=== PATIENT | female | born 1980 | race Caucasian/White ===

== ENCOUNTER 2016-08-18 02:15 | Inpatient (IN) | payer MEDICAID ==
[2016-08-18 02:15] VITALS: BMI 24.2
[2016-08-18] MEDS ORDERED: Amoxicillin-Clav 875-125 mg Tab PO STA (03:37)
[2016-08-18 03:38] LABS: BASO % 0.3 % (0.0-2.0); EOS # 0.2 K/uL (0.0-0.7); EOS % 2.3 % (0.0-4.0); HEMOGLOBIN 9.5 g/dL (11.0-16.0); LYMPH # 3.2 K/uL (1.0-4.3); LYMPH % 36.4 % (20.0-40.0); MEAN CELL VOLUME 73.7 fL (81.0-99.0); MEAN CORPUSCULAR HGB CONC 31.2 g/dL (33.0-37.0); MEAN PLATELET VOLUME 7.3 fL (7.2-11.7); MONO # 0.8 K/uL (0.0-0.8); MONO % 8.9 % (0.0-10.0); NEUT # 4.6 K/uL (1.8-7.0); NEUT % 52.1 % (50.0-75.0); NRBC % 0.1 % (0.0-2.0); RBC 4.12 Mil/uL (3.80-5.20); RED CELL DISTRIBUTION WIDTH 23.8 % (11.5-14.5); WHITE BLOOD COUNT 8.8 K/uL (4.8-10.8)
[2016-08-18 03:42] LABS: HCG,QUALITATIVE URINE NEGATIVE (NEGATIVE)
[2016-08-18 03:49] LABS: ALBUMIN 3.7 g/dL (3.5-5.0); BARBITURATES, UR NEGATIVE (NEGATIVE)
--- NOTE | 2016-08-18 03:49 | C.PDOC ---
History Of Present Illness <Delon Ann - Last Filed: 08/18/16 06:21> <Maryanne Paniagua - Last Filed: 08/18/16 08:45> 36 y/o female presents to ED requesting heroin detox. Patient also reports drinking 2 pints of vodka. States last use of heroin and vodka was today. Patient also states that part of her needle broke off into her left forearm while injecting heroin. Otherwise, denies any other physical complaints at this time. (Delon Ann) History Per: Patient History/Exam Limitations: no limitations Onset/Duration Of Symptoms: Gradual Current Symptoms Are (Timing): Still Present Severity: None Pain Scale Rating Of: 0 Associated Symptoms: denies: Suicidal Thoughts, Suicidal Plan Involuntary Hold By: None Recent travel outside of the [place]: No Additional History Per: Patient <Jane Annmoon Wilson - Last Filed: 08/18/16 06:21> <SivaMaryanne - Last Filed: 08/18/16 08:45> Time Seen by Provider: 08/18/16 03:10 Chief Complaint (Nursing): Psychiatric Evaluation Past Medical History Reviewed: Historical Data, Nursing Documentation, Vital Signs - Medical History PMH: Asthma Denies: Diabetes, Hepatitis, HIV, HTN, Chronic Kidney Disease, Seizures, Sexually Transmitted Disease Family History: States: Unknown Family Hx - Social History Hx Alcohol Use: Yes Hx Substance Use: Yes - Immunization History Hx Tetanus Toxoid Vaccination: No Hx Influenza Vaccination: No Hx Pneumococcal Vaccination: No <NagageetaCeliaDelon P - Last Filed: 08/18/16 06:21> Review Of Systems Except As Marked, All Systems Reviewed And Found Negative. Constitutional: Negative for: Fever, Chills Cardiovascular: Negative for: Chest Pain, Palpitations Respiratory: Negative for: Shortness of Breath Gastrointestinal: Negative for: Nausea, Vomiting, Abdominal Pain Neurological: Negative for: Headache, Dizziness Psych: Negative for: Suicidal ideation <MarissaDelon P - Last Filed: 08/18/16 06:21> Physical Exam - Physical Exam Appears: Non-toxic, No Acute Distress Skin: Warm, Dry, Other (track faust to left forearm. No visible or palpable foreign body) Head: Atraumatic, Normacephalic Eye(s): bilateral: Normal Inspection Neck: Normal ROM, Supple Cardiovascular: Rhythm Regular, No Murmur Respiratory: Normal Breath Sounds, No Rales, No Rhonchi, No Wheezing Gastrointestinal/Abdominal: Soft, No Tenderness Extremity: Normal ROM, No Tenderness, No Deformity Neurological/Psych: Oriented x3, Normal Speech, Normal Cognition <Delon Ann - Last Filed: 08/18/16 06:21> ED Course And Treatment - Laboratory Results Result Diagrams: 08/18/16 03:34 08/18/16 03:34 ECG: Interpreted By Me, Viewed By Me ECG Rhythm: Sinus Tachycardia ECG Interpretation: No Acute Changes Rate From EC (bpm) O2 Sat by Pulse Oximetry: 97 Pulse Ox Interpretation: Normal Progress Note: Blood work, urinalysis, EKG ordered and reviewed. Patient was given Augmentin. <Delon Ann - Last Filed: 08/18/16 06:21> - Laboratory Results Result Diagrams: 08/18/16 03:34 08/18/16 03:34 <Maryanne Paniagau - Last Filed: 08/18/16 08:45> Medical Decision Making <Delon Ann - Last Filed: 08/18/16 06:21> <Maryanne Paniagua - Last Filed: 08/18/16 08:45> Medical Decision Making: Rec pt to follow up with surgery for ? fb in forearm. Rec continue ppx abx augmentin for 5 days. (Delon Ann) Disposition <Delon Ann - Last Filed: 08/18/16 06:21> - Disposition Disposition Time: 08:45 - POA Present On Arrival: None <Maryanne Paniagua - Last Filed: 08/18/16 08:45> - Disposition Referrals: Eduardo French MD [Staff Provider] - Disposition: HOSPITALIZED Condition: STABLE - Clinical Impression Clinical Impression: Opiate dependence, Alcohol dependence - Scribe Statement The provider has reviewed the documentation as recorded by the Scribe <Delon Ann - Last Filed: 08/18/16 06:21> <Maryanne Paniagua - Last Filed: 08/18/16 08:45> - Scribe Statement Sharonda Olson All medical record entries made by the Scribe were at my direction and personally dictated by me. I have reviewed the chart and agree that the record accurately reflects my personal performance of the history, physical exam, medical decision making, and the department course for this patient. I have also personally directed, reviewed, and agree with the discharge instructions and disposition. (Delon Ann) Decision To Admit <Delon Ann - Last Filed: 08/18/16 06:21> - Pt Status Changed To: Hospital Disposition Of: Inpatient - Admit Certification Admit to Inpatient:: After my assessment, the patient will require hospitalization for at least two midnights. This is because of the severity of symptoms shown, intensity of services needed, and/or the medical risk in this patient being treated as an outpatient. - InPatient: Physician Admission Certification: I certify that this patient requires 2 or more midnights of care for the following reason:: SEE NOTE - . Bed Request Type: Detox Admitting Physician: Meme Chao <Maryanne Paniagua - Last Filed: 08/18/16 08:45> - . Patient Diagnosis: Opiate dependence, Alcohol dependence
[2016-08-18 03:50] LABS: BENZODIAZEPINES, UR POSITIVE (NEGATIVE)
[2016-08-18 03:52] LABS: GFR AFRICAN-AMERICAN > 60; GFR NON-AFRICAN AMERICAN > 60
[2016-08-18 03:53] LABS: ALT/SGPT 117 U/L (9-52); AST/SGOT 227 U/L (14-36); BLOOD UREA NITROGEN 9 mg/dL (7-17); CALCIUM 7.8 mg/dl (8.6-10.4); OPIATES, UR POSITIVE (NEGATIVE)
[2016-08-18 03:54] LABS: PHENCYCLIDINE, UR NEGATIVE (NEGATIVE)
[2016-08-18 03:55] LABS: SQUAMOUS EPITHIAL 6 /hpf (0-5); URINE BACTERIA RARE (<OCC); URINE BILIRUBIN NEGATIVE (NEGATIVE); URINE BLOOD NEGATIVE (NEGATIVE); URINE CLARITY Clear (Clear); URINE COLOR Yellow (YELLOW); URINE GLUCOSE (UA) NORMAL (Normal); URINE LEUKOCYTE ESTERASE NEG Leu/uL (Negative); URINE NITRATE NEGATIVE (NEGATIVE); URINE PROTEIN NEGATIVE (NEGATIVE); URINE UROBILINOGEN NORMAL mg/dL (0.2-1.0)
[2016-08-18] MEDS ORDERED: Potassium Chloride 20 mEq ER Tab PO STA (06:19)
[2016-08-18] MEDS ORDERED: Potassium Chloride 20 mEq ER Tab PO SCH (10:00)
--- NOTE | 2016-08-18 10:39 | PCM.BM ---
<Jennifer Morales - Last Filed: 08/18/16 10:39> Treatment Plan Problems - Problems identified on initial assessmt denial Date Initiated: 08/18/16 Time Initiated: 10:40 Assessment reference: NA Status: Active Defensive Coping Date Initiated: 08/18/16 Time Initiated: 10:40 Assessment reference: NA Status: Active Knowledge Deficit Date Initiated: 08/18/16 Time Initiated: 10:42 Assessment reference: NA Status: Active Treatment assets and liabiliti Patient Assests: adapts well, cooperative, ADL independent, strong sri Patient Liabilities: substance abuse - Milieu Protocol Maintain good personal hygiene: daily Encourage regular showers, daily Remind patient to perform daily oral care, daily Assist patient to perform ADL's Conduct patient checks and document Observation sheet: Q15 minutes Maintain personal safety: every shift Educate patient to report safety concerns to staff, every shift Monitor environment for contraband/sharps Medication safety: Monitor for expected outcome, potential side effects: every shift, Assess barriers to learning: every shift, Assess readiness for medication education: every shift <Meme Chao - Last Filed: 08/24/16 23:34> Treatment Plan Problems - Problems identified on initial assessmt denial Date Initiated: 08/18/16 Time Initiated: 10:40 Assessment reference: NA Status: Active Defensive Coping Date Initiated: 08/18/16 Time Initiated: 10:40 Assessment reference: NA Status: Active Knowledge Deficit Date Initiated: 08/18/16 Time Initiated: 10:42 Assessment reference: NA Status: Active deniel Date Initiated: 08/18/16 Assessment reference: NA Status: Active - Diagnosis (1) Alcohol dependence Status: Acute Interventions: 08/22/16 20:33 * Assess 7x/week regarding severity of withdrawal * Educate regarding risks, benefits, side effects and alternatives of medications * Use Motivational Interviewing for abstinence * Use CBT for relapse prevention * Medication management for withdrawal symptoms * Encourage medication assisted treatment * (2) Opiate dependence Status: Acute Interventions: 08/22/16 20:34 * Assess 7x/week regarding severity of withdrawal * Educate regarding risks, benefits, side effects and alternatives of medications * Use Motivational Interviewing for abstinence * Use CBT for relapse prevention * Medication management for withdrawal symptoms * Encourage medication assisted treatment
[2016-08-18] MEDS ORDERED: Aluminum Hydroxide/Magnesium Hydroxide Susp (30 mL) PO PRN (11:47)
[2016-08-18] MEDS ORDERED: Multiple Vitamins Tab PO SCH (12:00)
[2016-08-18] MEDS: Multiple Vitamins Tab PO SCH (12:30)
--- NOTE | 2016-08-18 12:48 | RAD ---
PROCEDURE: Radiographs of the Left Forearm HISTORY: R/O FB COMPARISON: None available. TECHNIQUE: Frontal and lateral views obtained. FINDINGS: BONES: No fracture or destructive lesion. JOINT SPACES: Unremarkable. OTHER FINDINGS: No retained radiodense foreign body or emphysematous soft tissue changes are identified. IMPRESSION: Unremarkable radiographs of the left forearm. No retained radius foreign body is identified or emphysema soft tissue change.
--- NOTE | 2016-08-18 13:33 | PCM.PSYCH ---
Initial Psychiatric Evaluation - Initial Psychiatric Evaluation Type of Admission: Voluntary Legal Status: Capacity Chief Complaint (in patient's own words): "I'm too tired" History of Present Illness and Precipitating Events: The patient is seen, chart reviewed and case discussed. This is a 36-year-old female, with 2 children but they are not living with her as she lost custody. She lives with her mother and . She is unemployed. She is a poor historian due to extreme sedation. The patient reports using heroin up to 15 bags intravenously for "many years." She also uses alcohol up to 2 pints a day and some benzodiazepines. Amount unknown. She denies current daily cocaine use but uses on and off, and smokes 1 pack per day cigarettes. She claimed she had a broken needle in her arm but XR looks negative and report is pending. She has been to detox to 3 times and rehabilitation twice. She was in methadone maintenance program in [place] but quit. She also used Suboxone or recently and in the past from the street. Past psych history: Anxiety. No admissions and no suicide attempts Family psych history: Denies Medical history: Denies Current Medications: Active Medications Generic Name Dose Route Start Last Admin Trade Name Freq PRN Reason Stop Dose Admin Al Hydrox/Mg Hydrox/Simethicone 30 ml 08/18/16 11:47 Maalox 30 Ml PO TID PRN Indigestion / Heartburn Clonidine HCl 0.1 mg 08/18/16 12:15 Catapres PO Q4H PRN FOR OPIATE WITHDRAWAL Gabapentin 300 mg 08/18/16 18:00 Neurontin PO BID IGLESIA Loperamide HCl 2 mg 08/18/16 11:47 Imodium PO Q8 PRN Diarrhea Lorazepam 1 mg 08/18/16 11:54 Ativan PO Q4H PRN Symptoms of alcohol withdrawl Lorazepam 2 mg 08/18/16 12:00 08/18/16 12:18 Ativan PO 08/22/16 11:59 2 mg Q6H IGLESIA Administration Taper Multivitamins 1 tab 08/18/16 12:00 08/18/16 12:30 Hexavitamin PO Not Given DAILY IGLESIA Ondansetron HCl 4 mg 08/18/16 11:47 Zofran Tab PO Q8 PRN Nausea/Vomiting Thiamine HCl 100 mg 08/18/16 12:00 08/18/16 12:30 Vitamin B1 Tab PO Not Given DAILY IGLESIA Trazodone HCl 50 mg 08/18/16 11:48 Desyrel PO HS PRN Insomnia Past Psychiatric History - Past Psychiatric History Previous Treatment History: None Pertinent Medical Hx (Current Medical&Sleep Prob, Allergies): Allergies Allergy/AdvReac Type Severity Reaction Status Date / Time No Known Allergies Allergy Verified 08/18/16 02:37 RX: No Known Home Med 03/30/15 Review of Systems - Psychiatric Psychiatric: Abnormal Sleep Pattern, Anxiety, Behavioral Changes, Change in Appetite, Irritability. absent: Hallucinations, Homicidal Ideation, Suicidal Ideation Mental Status Examination - Personal Presentation Personal Presentation: Looks older than stated age - Affect Affect: Constricted - Motor Activity Motor Activity: Calm - Reliability in Providing Information Reliability in Providing Information: Fair - Speech Speech: Organized - Mood Mood: Anxious - Formal Thought Process Formal Thought Process: No Impairment - Cognitive Functions Orientation: Person, Place, Situation, Time Sensorium: Drowsy Attention/Concentration: Easily distracted Estimate of Intelligence: Average Judgement: Intact, as evidence by: Insight regarding need for hospitalization Memory: Recent intact, as evidence by: Ability to recall events of the day, Remote impaired as evidenced by: Inability to recall sig life events - Risk Risk: Seizure, Withdrawal, Diminished functioning - Strength & Assets Inventory Strength & Assets Inventory: Family support, Cooperative - Limitations Limitations: Other DSM 5 DX - DSM 5 DSM 5 Diagnosis: Opioid withdrawal Alcohol withdrawal 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 Alcohol use d/o - severe 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 NAOMI Cocaine use d/o - severe Tobacco use d/o - severe - Recommended/Plan of Treatment Treatment Recommendations and Plan of Treatment: Opioids: Subutex detox As needed meds and vitamins Attend groups and activities [place] for abstinence and CBT for relapse prevention Support and psychoeducation Consider and encourage MAT Refer to after care Alcohol and benzos: Ativan detox due to high LFTs Gabapentin for augmentation As needed meds and vitamins Attend groups and activities [place] for abstinence and CBT for relapse prevention Support and psychoeducation Consider and encourage MAT Refer to after care Cocaine:[place] and CBT Gabapentin Tobacco: Nicotine patch [place] for abstinence NAOMI: Lexapro Gabapentin Support and CBT 33 min Projected ELOS: 5 days Prognosis: Good with treatment Discharge Plan and Discharge Criteria: No wdw sxs Refer to rehab - Smoking Cessation Smoking Cessation Initiated: Yes
--- NOTE | 2016-08-19 08:58 | PCM.PYCHPN ---
Psychiatric Progress Note - Psychiatric Progress Note Patient seen today, length of contact: 15 min Patient Chief Complaint: I am feeling little better.' Problems Identified/Issues Discussed: Patient seen and evaluated, chart reviewed and discussed with the nurse. The patient reports irritability and anxiety. She reports withdrawal symptoms including abdominal cramps, back pain, anxiety, and sweating. She is tolerating the detox protocol medications and denies any feelings of hopelessness or helplessness. She denies any suicidal ideation or homicidal ideation. She denies any side effects of the medications. Supportive therapy and psychoeducation were given. Medication Change: Yes (Ativan / methadone taper) Medical Record Reviewed: Yes Mental Status Examination - Cognitive Function Orientation: Person, Place, Situation, Time Memory: Intact Attention: WNL Concentration: Poor Association: WNL Fund of Knowledge: Poor - Mood Mood: Anxious - Affect Affect: Constricted - Speech Speech: Soft - Formal Thought Process Formal Thought Process: No Impairment - Suicidal Ideation Suicidal Ideation: No - Homicidal Ideation Homicidal Ideation: No Goal/Treatment Plan - Goal/Treatment Plan Need for Continued Stay: Discharge may exacerbated symptoms, Severe functional impairment Progress Toward Problem(s) and Goals/Treatment Plan: Opioid withdrawal Alcohol withdrawal 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 Alcohol use d/o - severe 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 NAOMI Cocaine use d/o - severe Tobacco use d/o - severe Opioids: Methadone detox As needed meds and vitamins Attend groups and activities [place] for abstinence and CBT for relapse prevention Support and psychoeducation Consider and encourage MAT Refer to after care Alcohol and benzos: Ativan detox due to high LFTs Gabapentin for augmentation As needed meds and vitamins Attend groups and activities [place] for abstinence and CBT for relapse prevention Support and psychoeducation Consider and encourage MAT Refer to after care Cocaine: [place] and CBT Gabapentin Tobacco: Nicotine patch [place] for abstinence NAOMI: Lexapro Gabapentin Support and CBT - Smoking Cessation Smoking Cessation Initiated: No
[2016-08-19] MEDS: Multiple Vitamins Tab PO SCH (09:18)
[2016-08-20] MEDS: Multiple Vitamins Tab PO SCH (09:23)
--- NOTE | 2016-08-20 10:09 | PCM.PYCHPN ---
Psychiatric Progress Note - Psychiatric Progress Note Patient seen today, length of contact: 16 min Patient Chief Complaint: I am feeling little better.' Problems Identified/Issues Discussed: Patient seen and evaluated, chart reviewed and discussed with the nurse. The patient reports a bit improvement in irritability and anxiety. She is tolerating the detox protocol medications and reports withdrawal symptoms including abdominal cramps, anxiety, and sweating. She denies any suicidal ideation or homicidal ideation. She denies any side effects of the medications. Supportive therapy and psychoeducation were given. Medication Change: Yes (Ativan / methadone taper) Medical Record Reviewed: Yes Mental Status Examination - Cognitive Function Orientation: Person, Place, Situation, Time Memory: Intact Attention: WNL Concentration: Poor Association: WNL Fund of Knowledge: Poor - Mood Mood: Anxious - Affect Affect: Constricted - Speech Speech: Soft - Formal Thought Process Formal Thought Process: No Impairment - Suicidal Ideation Suicidal Ideation: No - Homicidal Ideation Homicidal Ideation: No Goal/Treatment Plan - Goal/Treatment Plan Need for Continued Stay: Discharge may exacerbated symptoms, Severe functional impairment Progress Toward Problem(s) and Goals/Treatment Plan: Opioid withdrawal Alcohol withdrawal 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 Alcohol use d/o - severe 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 NAOMI Cocaine use d/o - severe Tobacco use d/o - severe Opioids: Methadone detox As needed meds and vitamins Attend groups and activities [place] for abstinence and CBT for relapse prevention Support and psychoeducation Consider and encourage MAT Refer to after care Alcohol and benzos: Ativan detox due to high LFTs Gabapentin for augmentation As needed meds and vitamins Attend groups and activities [place] for abstinence and CBT for relapse prevention Support and psychoeducation Consider and encourage MAT Refer to after care Cocaine: [place] and CBT Gabapentin Tobacco: Nicotine patch [place] for abstinence NAOMI: Lexapro Gabapentin Support and CBT - Smoking Cessation Smoking Cessation Initiated: No
[2016-08-21] MEDS: Multiple Vitamins Tab PO SCH (09:55)
--- NOTE | 2016-08-21 13:27 | CARD ---
APPROVED REPORT EKG Measurement Heart [id number] <Conclusion> Sinus tachycardia Otherwise normal ECG
--- NOTE | 2016-08-21 13:38 | PCM.PYCHPN ---
Psychiatric Progress Note - Psychiatric Progress Note Patient seen today, length of contact: 16 min Patient Chief Complaint: "I'm okay" Problems Identified/Issues Discussed: Patient reported that her weekend went well and reports less pain in back and belly. Plans to attend IOP at [facility] in [place], [place]. States she is unsure of her baseline sleep improvement, as she requires sleep pills to get sleep. Patient is seen, chart reviewed, case discussed with staff. Support given, CBT and [place] used briefly No new symptoms reported, improving slowly and needs more time. No SEs from medications, risks discussed. After Care discussed. D/C tomorrow Medication Change: Yes (Ativan / methadone taper) Medical Record Reviewed: Yes Mental Status Examination - Cognitive Function Orientation: Person, Place, Situation, Time Memory: Intact Attention: WNL Concentration: Poor Association: WNL Fund of Knowledge: Poor - Mood Mood: Anxious - Affect Affect: Constricted - Speech Speech: Soft - Formal Thought Process Formal Thought Process: No Impairment - Suicidal Ideation Suicidal Ideation: No - Homicidal Ideation Homicidal Ideation: No Goal/Treatment Plan - Goal/Treatment Plan Need for Continued Stay: Discharge may exacerbated symptoms, Severe functional impairment Progress Toward Problem(s) and Goals/Treatment Plan: Opioids: Subutex detox As needed meds and vitamins Attend groups and activities [place] for abstinence and CBT for relapse prevention Support and psychoeducation Consider and encourage MAT Refer to after care Alcohol and benzos: Ativan detox due to high LFTs Gabapentin for augmentation As needed meds and vitamins Attend groups and activities [place] for abstinence and CBT for relapse prevention Support and psychoeducation Consider and encourage MAT Refer to after care Cocaine:[place] and CBT Gabapentin Tobacco: Nicotine patch [place] for abstinence NAOMI: Lexapro Gabapentin Support and CBT
[2016-08-22 08:26] VITALS: BP 155/97; PULSE 82; RESP 18; TEMP 99; O2SAT 100
--- NOTE | 2016-08-22 08:48 | PCM.PYCHDC ---
Mental Status Examination - Mental Status Examination Orientation: Person, Place, Situation, Time Memory: Intact Mood: Anxious Affect: Broad Speech: Appropriate Attention: WNL Concentration: WNL Association: WNL Fund of Knowledge: WNL Formal Thought Process: No Impairment Suicidal Ideation: No Current Homicidal Ideation?: No Discharge Summary - Discharge Note Reason for Hospitalization: Opioid detox Alcohol detox Psychiatric History (includes Medical, Family, Personal Hx): Per Hospital Course Consultations:: List each consultation separately and include: 1. Reason for request. 2. Findings. 3. Follow-up Summary of Hospital Course include:: 1. Description of specific treatment plan utilized for patients during their course of treatmen. 2. Summarize the time- course for resolution of acute symptoms and/or regressed behaviors. 3. Describe issues identified and worked on during hospitalization. 4. Describe medication utilized. 5. Describe medical problems identified and treated. 6. Reassessment of suicide risk Summary of Hospital Course: "Feeling so much better" Patient states she is feeling better. Plans to start at [facility] in [place], [place] on Sunday (08/23/16). Patient is looking for a sober living house, because they have meetings. Living there will allow her to work and pay outstanding debts. She plans to stay as long as she needs to. Patient requested a treatment for yeast infection. Denies SI/HI. The pt was admitted and started on treatment with psychotherapy, support, psychoeducation and medications. [place] and CBT used. The pt attended groups and activities, as well as milieu therapy. All the risks and benefits of medications are discussed and the patient understood and agreed. The patient improved with the treatment provided and discharged as planned. 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 Follow after care plan as discussed. Use relapse prevention skills Return to ER or call 911 if suicidal, homicidal or symptoms relapse. Stay away from stress, alcohol and drugs. See primary doctor once a year. Prescriptions/Medication Reconciliation: Gabapentin [Neurontin] 300 mg PO TID #90 cap traZODone [Desyrel] 50 mg PO HS PRN #30 tab PRN Reason: Insomnia - Smoking Cessation Smoking Cessation Medication prescribed: No - Antipsychotic Medications Pt discharged on 2 or more routine antipsychotic medications: No
[2016-08-22] MEDS: Multiple Vitamins Tab PO SCH (09:45)
--- NOTE | 2016-08-25 14:30 | CARD ---
APPROVED REPORT EKG Measurement Heart [id number] <Conclusion> Normal sinus rhythm Possible Left atrial enlargement Prolonged QT Abnormal ECG
== END 2016-08-22 10:30 | disposition home or self-care (01) | DRG 745 ==
LOC: C.ER 02:15 → C.7D 08:45
PROVIDERS: ADMIT Psychiatry & Neurology Psychiatry; ATTEND Psychiatry & Neurology Psychiatry
PROC: HZ2ZZZZ Detoxification Services for Substance Abuse Treatment (ICD-10-PCS; principal; 2016-08-18)
PROC: HZ52ZZZ Individual Psychotherapy for Substance Abuse Treatment, Cognitive-Behavioral (ICD-10-PCS; 2016-08-18)
PROC: HZ42ZZZ Group Counseling for Substance Abuse Treatment, Cognitive-Behavioral (ICD-10-PCS; 2016-08-18)
PROC: HZ59ZZZ Individual Psychotherapy for Substance Abuse Treatment, Supportive (ICD-10-PCS; 2016-08-18)
PROC: HZ56ZZZ Individual Psychotherapy for Substance Abuse Treatment, Psychoeducation (ICD-10-PCS; 2016-08-18)
PROC: HZ46ZZZ Group Counseling for Substance Abuse Treatment, Psychoeducation (ICD-10-PCS; 2016-08-18)
DX: F11.23 Opioid dependence with withdrawal (principal); F10.230 Alcohol dependence with withdrawal, uncomplicated; F13.230 Sedative, hypnotic or anxiolytic dependence with withdrawal, uncomplicated; F14.10 Cocaine abuse, uncomplicated; J45.909 Unspecified asthma, uncomplicated; Y90.8 Blood alcohol level of 240 mg/100 ml or more; F41.1 Generalized anxiety disorder; F17.210 Nicotine dependence, cigarettes, uncomplicated

== ENCOUNTER 2017-06-02 23:53 | Inpatient (IN) | payer MEDICAID ==
[2017-06-02 23:54] VITALS: BMI 24.2
--- NOTE | 2017-06-03 00:24 | C.PDOC ---
History Of Present Illness 36 year old female presents to the ED as a prescreen for heroin and alcohol detox. Patient states last use was at around [id number] today. Patient is c/o some myalgia and anxiety. Denies suicidal/homicidal ideation and has no other complaints at this time. Time Seen by Provider: 06/03/17 00:23 Chief Complaint (Nursing): Substance Abuse History Per: Patient History/Exam Limitations: no limitations Onset/Duration Of Symptoms: Hrs Current Symptoms Are (Timing): Still Present Suicide/Self Injury Attempted (Context): None Modifying Factor(s): Alcohol, Narcotics (heroin ) Associated Symptoms: denies: Suicidal Thoughts, Suicidal Plan Involuntary Hold By: None Recent travel outside of the [place]: No Additional History Per: Patient Past Medical History Reviewed: Historical Data, Nursing Documentation, Vital Signs Vital Signs: Last Vital Signs Temp 98.6 F 06/03/17 00:02 Pulse 89 06/03/17 04:38 Resp 16 06/03/17 04:38 BP 108/64 06/03/17 04:38 Pulse Ox 98 06/03/17 04:38 - Medical History PMH: Anxiety, Asthma, Depression Denies: Diabetes, Hepatitis, HIV, HTN, Chronic Kidney Disease, Seizures, Sexually Transmitted Disease Surgical History: No Surg Hx - [facility] Procedures DETOXIFICATION SERVICES FOR SUBSTANCE ABUSE TREATMENT (08/18/16) GROUP BANK CASHIER FOR SUBSTANCE ABUSE TREATMENT, PSYCHOEDUCATION (08/18/16) GROUP BANK CASHIER FOR SUBSTANCE ABUSE, COGNITIVE BEHAVIORAL (08/18/16) INDIV PSYCHOTHERAPY FOR SUBSTANCE ABUSE TREATMENT, SUPPORT (08/18/16) INDIV PSYCHOTHERAPY FOR SUBSTANCE ABUSE, COGNITIV BEHAVIORAL (08/18/16) INDIV PSYCHOTHERAPY FOR SUBSTANCE ABUSE, PSYCHOEDUCATION (08/18/16) Family History: States: Unknown Family Hx - Social History Hx Alcohol Use: Yes (15 years) Hx Substance Use: Yes (heroin 5 years) - Immunization History Hx Tetanus Toxoid Vaccination: No Hx Influenza Vaccination: No Hx Pneumococcal Vaccination: No Review Of Systems Musculoskeletal: Positive for: Other (myalgias ) Psych: Positive for: Anxiety, Other (heroin and alcohol detox ). Negative for: Suicidal ideation Physical Exam - Physical Exam Appears: Non-toxic, No Acute Distress Skin: Normal Color, Warm, Dry Head: Atraumatic, Normacephalic Eye(s): bilateral: Normal Inspection Oral Mucosa: Moist Neck: Supple Chest: Symmetrical, No Deformity, No Tenderness Cardiovascular: Rhythm Regular, No Murmur Respiratory: Normal Breath Sounds, No Rales, No Rhonchi, No Wheezing Gastrointestinal/Abdominal: Soft, No Tenderness, No Guarding, No Rebound Extremity: Normal ROM, Capillary Refill (less than 2 seconds ) Neurological/Psych: Oriented x3, Normal Speech, Normal Cognition, Other (calm, cooperative, no signs of acute intoxication ) ED Course And Treatment - Laboratory Results Result Diagrams: 06/03/17 00:30 06/03/17 00:30 O2 Sat by Pulse Oximetry: 97 (on RA) Pulse Ox Interpretation: Normal Progress Note: Bloodwork and urinalysis ordered and reviewed. Catapres PO, Toradol IM, Xanax PO and Zofran PO administered. Reevaluation Time: 01:45 Reassessment Condition: Improved (MED CLEAR FOR CRISIS. NOTIFIED.) Disposition Counseled Patient/Family Regarding: Studies Performed, Diagnosis - Disposition Disposition: HOSPITALIZED Disposition Time: 05:36 Condition: STABLE Forms: [email or web address] (Latvian) - POA Present On Arrival: None - Clinical Impression Clinical Impression: Opiate dependence, Alcohol dependence - Scribe Statement The provider has reviewed the documentation as recorded by the Scribe (Sarah Olson) Provider Attestation: All medical record entries made by the Scribe were at my direction and personally dictated by me. I have reviewed the chart and agree that the record accurately reflects my personal performance of the history, physical exam, medical decision making, and the department course for this patient. I have also personally directed, reviewed, and agree with the discharge instructions and disposition. Decision To Admit - Pt Status Changed To: Hospital Disposition Of: Inpatient - Admit Certification Admit to Inpatient:: After my assessment, the patient will require hospitalization for at least two midnights. This is because of the severity of symptoms shown, intensity of services needed, and/or the medical risk in this patient being treated as an outpatient. - InPatient: Physician Admission Certification: I certify that this patient requires 2 or more midnights of care for the following reason:: SEE NOTE - . Bed Request Type: Detox Admitting Physician: Meme Chao Patient Diagnosis: Opiate dependence, Alcohol dependence
[2017-06-03 00:35] LABS: BASO # 0.1 K/uL (0.0-0.2); BASO % 0.7 % (0.0-2.0); EOS # 0.1 K/uL (0.0-0.7); EOS % 1.1 % (0.0-4.0); HEMOGLOBIN 13.1 g/dL (11.0-16.0); LYMPH # 3.3 K/uL (1.0-4.3); LYMPH % 43.1 % (20.0-40.0); MEAN CELL VOLUME 72.4 fL (81.0-99.0); MEAN CORPUSCULAR HEMOGLOBIN 23.6 pg (27.0-31.0); MEAN CORPUSCULAR HGB CONC 32.6 g/dL (33.0-37.0); MEAN PLATELET VOLUME 8.4 fL (7.2-11.7); MONO # 0.5 K/uL (0.0-0.8); MONO % 6.8 % (0.0-10.0); NEUT # 3.7 K/uL (1.8-7.0); NEUT % 48.3 % (50.0-75.0); RBC 5.52 Mil/uL (3.80-5.20); WHITE BLOOD COUNT 7.6 K/uL (4.8-10.8)
[2017-06-03 00:39] LABS: SQUAMOUS EPITHIAL 6 /hpf (0-5); URINE BILIRUBIN NEGATIVE (NEGATIVE); URINE BLOOD NEGATIVE (NEGATIVE); URINE CLARITY Hazy (Clear); URINE COLOR Yellow (YELLOW); URINE GLUCOSE (UA) NORMAL (Normal); URINE LEUKOCYTE ESTERASE NEG Leu/uL (Negative); URINE PROTEIN 1+ mg/dL (NEGATIVE); URINE UROBILINOGEN NORMAL mg/dL (0.2-1.0)
[2017-06-03 00:40] LABS: HCG,QUALITATIVE URINE NEGATIVE (NEGATIVE)
[2017-06-03 01:12] LABS: ALB/GLOB RATIO 0.9 (1.0-2.1); ALBUMIN 4.7 g/dL (3.5-5.0); ALT/SGPT 20 U/L (9-52); AST/SGOT 85 U/L (14-36); BLOOD UREA NITROGEN 11 mg/dL (7-17); CALCIUM 9.1 mg/dl (8.6-10.4); GFR AFRICAN-AMERICAN > 60; GFR NON-AFRICAN AMERICAN > 60
[2017-06-03 01:32] LABS: BARBITURATES, UR NEGATIVE (NEGATIVE); BENZODIAZEPINES, UR NEGATIVE (NEGATIVE); PHENCYCLIDINE, UR NEGATIVE (NEGATIVE)
[2017-06-03 01:39] LABS: OPIATES, UR POSITIVE (NEGATIVE)
--- NOTE | 2017-06-03 08:15 | PCM.BM ---
<Jennifer Morales - Last Filed: 06/03/17 08:13> Treatment Plan Problems - Problems identified on initial assessmt potential for opiate withdrawals Date Initiated: 06/03/17 Assessment reference: NA Status: Active potential for alcohol withdrawals Date Initiated: 06/03/17 Assessment reference: NA Status: Active Treatment assets and liabiliti Patient Assests: adapts well, cooperative, educated, ADL independent, negotiates basic needs, strong sri Patient Liabilities: substance abuse - Milieu Protocol Maintain good personal hygiene: daily Encourage regular showers, daily Remind patient to perform daily oral care, daily Assist patient to perform ADL's Conduct patient checks and document Observation sheet: Q15 minutes Maintain personal safety: every shift Educate patient to report safety concerns to staff, every shift Monitor environment for contraband/sharps Medication safety: Monitor for expected outcome, potential side effects: every shift, Assess barriers to learning: every shift, Assess readiness for medication education: every shift <Meme Chao - Last Filed: 06/05/17 23:31> - Diagnosis (1) Alcohol dependence Status: Acute Interventions: 06/05/17 23:31 * Assess 7x/week regarding severity of withdrawal * Educate regarding risks, benefits, side effects and alternatives of medications * Use Motivational Interviewing for abstinence * Use CBT for relapse prevention * Medication management for withdrawal symptoms * Encourage medication assisted treatment * (2) Opiate dependence Status: Acute Interventions: 06/05/17 23:31 * Assess 7x/week regarding severity of withdrawal * Educate regarding risks, benefits, side effects and alternatives of medications * Use Motivational Interviewing for abstinence * Use CBT for relapse prevention * Medication management for withdrawal symptoms * Encourage medication assisted treatment * <Marisa Mcgraw - Last Filed: 06/06/17 11:39> Family Contact Family involvement: Famliy/SO not involved - Goals for Treatment Patient goals for treatment: Complete detox and transition to IOP. Discharge/Continuing Care - Education Needs Education Needs: Patient Medication, Patient Diagnosis/Disease Process, Patient Coping Skills, Patient Anger Management skills, Patient Placement options, Patient Community resources - Discharge Discharge Criteria: Normal sleep pattern, Ability to care for self, No longer exhibiting s/s of withdrawal, Reduction of target symptoms Discharge to:: Home, With Family - Treatment Team Participation Patient/Family/SO Statement: 06/06/17 11:39 "I wanna go to [facility] from here..." Discussed with Family/SO: No Was Patient/Family/SO present at Treatment Team Meeting: Yes
[2017-06-03] MEDS: Multiple Vitamins Tab PO SCH (10:06)
--- NOTE | 2017-06-03 20:51 | CP.PCM.CON ---
Addendum entered and electronically signed by Nakul Bautista DO 06/03/17 22:52: Upper extremity US cancelled InD done by group president with me at bedside 1ml of purulent discharge noted culture sent of fluid Original Note: <Nakul Bautista - Last Filed: 06/03/17 20:48> History of Present Illness - History of Present Illness History of Present Illness: CC: L Hand Pain This patient is a 36yo F w/ a PMhx of heroin abuse, 10-15 bags a day IV, EtOH abuse 7 pints per day last drink 24 hours ago with one episode of seizures, tobacco abuse, who originally presented to [facility] for detox from the aforementioned illegal substances. The patient is currently denying fevers/ chills, OLSEN, CP, SOB, abdominal pain, N/V/D, dysuria/freq/urg or lower extremity pain. She is complaining of mild tremors, which she attributes to EtOH withdrawal which she states is controlled with the current librium regimen. She is requesting to be re-tested for HIV/Syphilis/Hepatitis. PMhx: none Surgical: ; no adverse reaction to anesthesia Meds: denies Allergies: Denies FamHx: Denies Social: daily heroin 10-15 bags IV, EtOH daily 7 pints with one episode of seizures, tobacco abuse Past Patient History - Past Medical History & Family History Past Medical History?: Yes - Past Social History Smoking Status: Heavy Smoker > 10 Cigarettes Daily - CARDIAC Hx Hypertension: No - PULMONARY Hx Asthma: Yes - NEUROLOGICAL Hx Seizures: No - HEENT Hx HEENT Problems: No - RENAL Hx Chronic Kidney Disease: No - ENDOCRINE/METABOLIC Hx Endocrine Disorders: No - HEMATOLOGICAL/ONCOLOGICAL Hx Human Immunodeficiency Virus (HIV): No - INTEGUMENTARY Hx Dermatological Problems: No - MUSCULOSKELETAL/RHEUMATOLOGICAL Hx Musculoskeletal Disorders: No Hx Falls: No - GASTROINTESTINAL Hx Gastrointestinal Disorders: No - GENITOURINARY/GYNECOLOGICAL Hx Sexually Transmitted Disorders: No - PSYCHIATRIC Hx Substance Use: Yes - SURGICAL HISTORY Hx Surgeries: Yes Hx Section: Yes - ANESTHESIA Hx Anesthesia: Yes Hx Anesthesia Reactions: No Meds Allergies/Adverse Reactions: Allergies Allergy/AdvReac Type Severity Reaction Status Date / Time No Known Allergies Allergy Verified 08/18/16 02:37 - Medications Medications: Current Medications Acetaminophen (Tylenol 325mg Tab) 975 mg PO Q6 PRN PRN Reason: Fever >100.4 F Chlordiazepoxide (Librium) 25 mg PO Q4 IGLESIA PRN Reason: Taper Stop: 06/08/17 11:59 Last Admin: 06/03/17 16:46 Dose: Not Given Chlordiazepoxide (Librium) 25 mg PO Q4H PRN PRN Reason: Alcohol Withdrawal Last Admin: 06/03/17 17:12 Dose: 25 mg Clonidine HCl (Catapres) 0.1 mg PO Q4H PRN PRN Reason: Symptoms of alcohol withdrawl Folic Acid (Folic Acid) 1 mg PO DAILY [facility] Last Admin: 06/03/17 10:06 Dose: 1 mg Hydroxyzine HCl (Atarax) 25 mg PO Q4H PRN PRN Reason: Anxiety Ibuprofen (Motrin Tab) 600 mg PO Q6H PRN PRN Reason: Pain, moderate (4-7) Multivitamins (Hexavitamin) 1 tab PO DAILY [facility] Last Admin: 06/03/17 10:06 Dose: 1 tab Nicotine (Nicoderm Cq) 1 patch TD DAILY [facility] Last Admin: 06/03/17 10:06 Dose: 1 patch Thiamine HCl (Vitamin B1 Tab) 100 mg PO DAILY [facility] Last Admin: 06/03/17 10:06 Dose: 100 mg Trazodone HCl (Desyrel) 100 mg PO HS PRN PRN Reason: Insomnia Trimethoprim/Sulfamethoxazole (Bactrim Ds Tab) 1 tab PO Q12H IGLESIA PRN Reason: Protocol Physical Exam - Constitutional Appears: Non-toxic Additional comments: unkempt - Head Exam Head Exam: ATRAUMATIC - Eye Exam Eye Exam: EOMI, Normal appearance, PERRL Pupil Exam: PERRL - ENT Exam ENT Exam: Mucous Membranes Moist - Neck Exam Neck exam: Positive for: Full Rom. Negative for: Lymphadenopathy - Respiratory Exam Respiratory Exam: Clear to Auscultation Bilateral, NORMAL BREATHING PATTERN. absent: Rales, Rhonchi, Wheezes - Cardiovascular Exam Cardiovascular Exam: REGULAR RHYTHM, +S1, +S2. absent: Diastolic murmur, Systolic Murmur - GI/Abdominal Exam GI & Abdominal Exam: Normal Bowel Sounds, Soft. absent: Tenderness Additional comments: c section scar - Extremities Exam Extremities exam: Negative for: calf tenderness Additional comments: on the LUES she has an indurated hard palpable abscess 2cm x 2cm on the dorsal aspect of her hand, no signs of surrounding cellulitis - Back Exam Back exam: NORMAL INSPECTION. absent: CVA tenderness (L), CVA tenderness (R) - Neurological Exam Neurological exam: Alert, Normal Gait, Oriented x3 - Psychiatric Exam Psychiatric exam: Anxious, Normal Affect - Skin Skin Exam: Warm Results - Vital Signs Recent Vital Signs: Last Vital Signs Temp 99.7 F H 06/03/17 20:14 Pulse 102 H 06/03/17 20:14 Resp 18 06/03/17 20:14 BP 145/95 H 06/03/17 20:14 Pulse Ox 100 06/03/17 20:14 - Labs Result Diagrams: 06/03/17 00:30 06/03/17 00:30 Labs: Laboratory Results - last 24 hr 06/03/17 06/03/17 06/03/17 00:30 00:30 00:30 WBC 7.6 RBC 5.52 H Hgb 13.1 D Hct 40.0 MCV 72.4 L MCH 23.6 L MCHC 32.6 L RDW 26.0 H Plt Count 243 D MPV 8.4 Neut % (Auto) 48.3 L Lymph % (Auto) 43.1 H [place] % (Auto) 6.8 Eos % (Auto) 1.1 Baso % (Auto) 0.7 Neut # (Auto) 3.7 Lymph # (Auto) 3.3 [place] # (Auto) 0.5 Eos # (Auto) 0.1 Baso # (Auto) 0.1 Sodium 147 Potassium 3.6 Chloride 101 Carbon Dioxide 22 Anion Gap 27 H BUN 11 Creatinine 0.6 L Est GFR ( Amer) > 60 Est GFR (Non-Af Amer) > 60 Random Glucose 104 Calcium 9.1 Total Bilirubin 0.9 AST 85 H ALT 20 Alkaline Phosphatase 72 Total Protein 9.9 H Albumin 4.7 Globulin 5.2 H Albumin/Globulin Ratio 0.9 L Urine Color Yellow Urine Clarity Hazy Urine pH 6.0 Ur Specific Cornell 1.006 Urine Protein 1+ H Urine Glucose (UA) Normal Urine Ketones Negative Urine Blood Negative Urine Nitrate Negative Urine Bilirubin Negative Urine Urobilinogen Normal Ur Leukocyte Esterase Neg Urine WBC (Auto) 2 Urine RBC (Auto) 2 Ur Squamous Epith Cells 6 H Urine HCG, Qual Negative Urine Opiates Screen Urine Methadone Screen Ur Barbiturates Screen Ur Phencyclidine Scrn Ur Amphetamines Screen U Benzodiazepines Scrn U Oth Cocaine Metabols U Cannabinoids Screen Alcohol, Quantitative 298 H 06/03/17 00:30 WBC RBC Hgb Hct MCV MCH MCHC RDW Plt Count MPV Neut % (Auto) Lymph % (Auto) [place] % (Auto) Eos % (Auto) Baso % (Auto) Neut # (Auto) Lymph # (Auto) [place] # (Auto) Eos # (Auto) Baso # (Auto) Sodium Potassium Chloride Carbon Dioxide Anion Gap BUN Creatinine Est GFR ( Amer) Est GFR (Non-Af Amer) Random Glucose Calcium Total Bilirubin AST ALT Alkaline Phosphatase Total Protein Albumin Globulin Albumin/Globulin Ratio Urine Color Urine Clarity Urine pH Ur Specific Cornell Urine Protein Urine Glucose (UA) Urine Ketones Urine Blood Urine Nitrate Urine Bilirubin Urine Urobilinogen Ur Leukocyte Esterase Urine WBC (Auto) Urine RBC (Auto) Ur Squamous Epith Cells Urine HCG, Qual Urine Opiates Screen Positive H Urine Methadone Screen Negative Ur Barbiturates Screen Negative Ur Phencyclidine Scrn Negative Ur Amphetamines Screen Negative U Benzodiazepines Scrn Negative U Oth Cocaine Metabols Negative U Cannabinoids Screen Negative Alcohol, Quantitative Assessment & Plan - Assessment and Plan (Free Text) Plan: 36yo F consulted for LUES abscess LUES Abscess -2/2 to heroin IV abuse -will obtain US of the LUES -surgical consult; Dr. Guardado; appreciate recs -PO Bactrim DS BID; patient does not show any overt signs of sepsis ( tachycardia 2/2 to EtOH withdrawal most likely, afebrile, looks clinically well) -will obtain blood cultures, procal, RPR, Syphilis, HIV, and Hepatitis at patients request -if blood cultures positive will obtain Echo EtOH withdrawal -as per psychiatry recs Heroin Withdrawal -as per psychiatry recs Discussed with Dr. tSephens Will remain in current setting for the time being Nakul Bautista PGY2 <Tyson Stephens - Last Filed: 06/04/17 06:19> Meds - Medications Medications: Current Medications Acetaminophen (Tylenol 325mg Tab) 975 mg PO Q6 PRN PRN Reason: Fever >100.4 F Chlordiazepoxide (Librium) 25 mg PO Q4 IGLESIA PRN Reason: Taper Stop: 06/08/17 11:59 Last Admin: 06/04/17 03:41 Dose: Not Given Chlordiazepoxide (Librium) 25 mg PO Q4H PRN PRN Reason: Alcohol Withdrawal Last Admin: 06/03/17 17:12 Dose: 25 mg Clonidine HCl (Catapres) 0.1 mg PO Q4H PRN PRN Reason: Symptoms of alcohol withdrawl Folic Acid (Folic Acid) 1 mg PO DAILY [facility] Last Admin: 06/03/17 10:06 Dose: 1 mg Hydroxyzine HCl (Atarax) 25 mg PO Q4H PRN PRN Reason: Anxiety Last Admin: 06/03/17 23:30 Dose: 25 mg Ibuprofen (Motrin Tab) 600 mg PO Q6H PRN PRN Reason: Pain, moderate (4-7) Multivitamins (Hexavitamin) 1 tab PO DAILY [facility] Last Admin: 06/03/17 10:06 Dose: 1 tab Nicotine (Nicoderm Cq) 1 patch TD DAILY [facility] Last Admin: 06/03/17 10:06 Dose: 1 patch Thiamine HCl (Vitamin B1 Tab) 100 mg PO DAILY [facility] Last Admin: 06/03/17 10:06 Dose: 100 mg Trazodone HCl (Desyrel) 100 mg PO HS PRN PRN Reason: Insomnia Last Admin: 06/03/17 23:30 Dose: 100 mg Trimethoprim/Sulfamethoxazole (Bactrim Ds Tab) 1 tab PO Q12H IGLESIA PRN Reason: Protocol Last Admin: 06/03/17 21:06 Dose: 1 tab Results - Vital Signs Recent Vital Signs: Last Vital Signs Temp 99.7 F H 06/03/17 20:14 Pulse 102 H 06/03/17 20:14 Resp 18 06/03/17 20:14 BP 145/95 H 06/03/17 20:14 Pulse Ox 100 06/03/17 20:14 - Labs Result Diagrams: 06/03/17 00:30 06/03/17 00:30 Labs: Laboratory Results - last 24 hr 06/03/17 06/03/17 06/03/17 21:41 21:47 22:14 PT 11.1 INR 1.0 APTT 31 Procalcitonin 0.18 L RPR Nonreactive Assessment & Plan - Date & Time Date: 06/04/17 (I have seen and examined the patient. I agree with the findings and plan of care as documented by Dr. Bautista. Patient with abscess secondary to IVDA. Surgery consulted for I&D. Troy DS. Monitor for acute changes.) Time: 06:18 Attending/Attestation - Attestation I have personally seen and examined this patient.: Yes I have fully participated in the care of the patient.: Yes I have reviewed all pertinent clinical information: Yes
[2017-06-03] MEDS: Tmp-Smz 800 mg-160 mg DS Tab PO SCH (21:06)
--- NOTE | 2017-06-03 21:34 | CP.PCM.CON ---
History of Present Illness - History of Present Illness History of Present Illness: Hand surgery consult not for Dr. Guardado Consulted for: left hand abscess Patient is a 36f with history of IV heroin and cocaine use who presented to the ED today for voluntary detox from drugs and alcohol. Patient noted worsening pain and redness in her left dorsal hand over the day. Patient admits to injecting heroin into the area earlier today. Patient states she has had a fever since admit but none is recorded. Patient denies any numbness or tingling in her hand, decreased range of motion in her fingers or wrist, or any other symptoms. Patient has had a similar episode before in her left antecubital fossa that was treated with and I&D. PMH: seizures, ETOH and IVDA PSH: incision and drainage of left arm abscess, ALL: NKDA Social: current cigarette smoker, daily heavy ETOH use, 15 bags of heroin daily , occasional cocaine Review of Systems - Review of Systems All systems: reviewed and no additional remarkable complaints except (as per HPI ) Past Patient History - Past Medical History & Family History Past Medical History?: Yes - Past Social History Smoking Status: Heavy Smoker > 10 Cigarettes Daily Alcohol: > 2 Drinks/Day Drugs: Cocaine, Opiates (heroin) - CARDIAC Hx Hypertension: No - PULMONARY Hx Asthma: Yes - NEUROLOGICAL Hx Seizures: No - HEENT Hx HEENT Problems: No - RENAL Hx Chronic Kidney Disease: No - ENDOCRINE/METABOLIC Hx Endocrine Disorders: No - HEMATOLOGICAL/ONCOLOGICAL Hx Human Immunodeficiency Virus (HIV): No - INTEGUMENTARY Hx Dermatological Problems: No - MUSCULOSKELETAL/RHEUMATOLOGICAL Hx Musculoskeletal Disorders: No Hx Falls: No - GASTROINTESTINAL Hx Gastrointestinal Disorders: No - GENITOURINARY/GYNECOLOGICAL Hx Sexually Transmitted Disorders: No - PSYCHIATRIC Hx Substance Use: Yes - SURGICAL HISTORY Hx Surgeries: Yes Hx Section: Yes Other/Comment: incision and drainage - ANESTHESIA Hx Anesthesia: Yes Hx Anesthesia Reactions: No Meds Allergies/Adverse Reactions: Allergies Allergy/AdvReac Type Severity Reaction Status Date / Time No Known Allergies Allergy Verified 08/18/16 02:37 - Medications Medications: Current Medications Acetaminophen (Tylenol 325mg Tab) 975 mg PO Q6 PRN PRN Reason: Fever >100.4 F Chlordiazepoxide (Librium) 25 mg PO Q4 IGLESIA PRN Reason: Taper Stop: 06/08/17 11:59 Last Admin: 06/03/17 20:55 Dose: 25 mg Chlordiazepoxide (Librium) 25 mg PO Q4H PRN PRN Reason: Alcohol Withdrawal Last Admin: 06/03/17 17:12 Dose: 25 mg Clonidine HCl (Catapres) 0.1 mg PO Q4H PRN PRN Reason: Symptoms of alcohol withdrawl Folic Acid (Folic Acid) 1 mg PO DAILY [facility] Last Admin: 06/03/17 10:06 Dose: 1 mg Hydroxyzine HCl (Atarax) 25 mg PO Q4H PRN PRN Reason: Anxiety Ibuprofen (Motrin Tab) 600 mg PO Q6H PRN PRN Reason: Pain, moderate (4-7) Multivitamins (Hexavitamin) 1 tab PO DAILY [facility] Last Admin: 06/03/17 10:06 Dose: 1 tab Nicotine (Nicoderm Cq) 1 patch TD DAILY [facility] Last Admin: 06/03/17 10:06 Dose: 1 patch Thiamine HCl (Vitamin B1 Tab) 100 mg PO DAILY [facility] Last Admin: 06/03/17 10:06 Dose: 100 mg Trazodone HCl (Desyrel) 100 mg PO HS PRN PRN Reason: Insomnia Trimethoprim/Sulfamethoxazole (Bactrim Ds Tab) 1 tab PO Q12H IGLESIA PRN Reason: Protocol Last Admin: 06/03/17 21:06 Dose: 1 tab Physical Exam - Constitutional Appears: Non-toxic, No Acute Distress - Head Exam Head Exam: ATRAUMATIC, NORMOCEPHALIC - Eye Exam Eye Exam: Normal appearance. absent: Conjunctival injection, Scleral icterus - ENT Exam ENT Exam: Mucous Membranes Moist, Normal Oropharynx - Respiratory Exam Respiratory Exam: NORMAL BREATHING PATTERN. absent: Accessory Muscle Use, Respiratory Distress - Extremities Exam Extremities exam: Negative for: calf tenderness, pedal edema Additional comments: dorsum of left hand with moderate cellulitis, erythema, and induration approximately 5cm in diameter with area of mild fluctuance approximately 1cm in diameter. Motor strength, vascular supply, and sensation intact - Neurological Exam Neurological exam: Alert, Oriented x3 - Psychiatric Exam Psychiatric exam: Normal Affect, Normal Mood - Skin Skin Exam: Dry, Intact, Normal Color, Warm Additional comments: except as noted above Results - Vital Signs Recent Vital Signs: Last Vital Signs Temp 99.7 F H 06/03/17 20:14 Pulse 102 H 06/03/17 20:14 Resp 18 04/29/18 20:14 BP 145/95 H 06/03/17 20:14 Pulse Ox 100 06/03/17 20:14 - Labs Result Diagrams: 06/03/17 00:30 06/03/17 00:30 Labs: Laboratory Results - last 24 hr 06/03/17 06/03/17 06/03/17 00:30 00:30 00:30 WBC 7.6 RBC 5.52 H Hgb 13.1 D Hct 40.0 MCV 72.4 L MCH 23.6 L MCHC 32.6 L RDW 26.0 H Plt Count 243 D MPV 8.4 Neut % (Auto) 48.3 L Lymph % (Auto) 43.1 H [place] % (Auto) 6.8 Eos % (Auto) 1.1 Baso % (Auto) 0.7 Neut # (Auto) 3.7 Lymph # (Auto) 3.3 [place] # (Auto) 0.5 Eos # (Auto) 0.1 Baso # (Auto) 0.1 Sodium 147 Potassium 3.6 Chloride 101 Carbon Dioxide 22 Anion Gap 27 H BUN 11 Creatinine 0.6 L Est GFR ( Amer) > 60 Est GFR (Non-Af Amer) > 60 Random Glucose 104 Calcium 9.1 Total Bilirubin 0.9 AST 85 H ALT 20 Alkaline Phosphatase 72 Total Protein 9.9 H Albumin 4.7 Globulin 5.2 H Albumin/Globulin Ratio 0.9 L Urine Color Yellow Urine Clarity Hazy Urine pH 6.0 Ur Specific [place] 1.006 Urine Protein 1+ H Urine Glucose (UA) Normal Urine Ketones Negative Urine Blood Negative Urine Nitrate Negative Urine Bilirubin Negative Urine Urobilinogen Normal Ur Leukocyte Esterase Neg Urine WBC (Auto) 2 Urine RBC (Auto) 2 Ur Squamous Epith Cells 6 H Urine HCG, Qual Negative Urine Opiates Screen Urine Methadone Screen Ur Barbiturates Screen Ur Phencyclidine Scrn Ur Amphetamines Screen U Benzodiazepines Scrn U Oth Cocaine Metabols U Cannabinoids Screen Alcohol, Quantitative 298 H 06/03/17 00:30 WBC RBC Hgb Hct MCV MCH MCHC RDW Plt Count MPV Neut % (Auto) Lymph % (Auto) [place] % (Auto) Eos % (Auto) Baso % (Auto) Neut # (Auto) Lymph # (Auto) [place] # (Auto) Eos # (Auto) Baso # (Auto) Sodium Potassium Chloride Carbon Dioxide Anion Gap BUN Creatinine Est GFR ( Amer) Est GFR (Non-Af Amer) Random Glucose Calcium Total Bilirubin AST ALT Alkaline Phosphatase Total Protein Albumin Globulin Albumin/Globulin Ratio Urine Color Urine Clarity Urine pH Ur Specific [place] Urine Protein Urine Glucose (UA) Urine Ketones Urine Blood Urine Nitrate Urine Bilirubin Urine Urobilinogen Ur Leukocyte Esterase Urine WBC (Auto) Urine RBC (Auto) Ur Squamous Epith Cells Urine HCG, Qual Urine Opiates Screen Positive H Urine Methadone Screen Negative Ur Barbiturates Screen Negative Ur Phencyclidine Scrn Negative Ur Amphetamines Screen Negative U Benzodiazepines Scrn Negative U Oth Cocaine Metabols Negative U Cannabinoids Screen Negative Alcohol, Quantitative Assessment & Plan - Assessment and Plan (Free Text) Assessment: 36F with subcutaneous abscess of the dorsum of the left hand Plan: Xray of the left hand to r/o foreign body ultrasound to determine abscess formation follow up blood culture Possible bedside I&D depending on study results Antibiotics Warm compresses Dr. Guardado notified, further recs per him Madelyn Medina, PGY2
[2017-06-03] MEDS ORDERED: Lidocaine 2% PF (10 ml) Amp INJ STA (22:14)
[2017-06-03] MEDS ORDERED: Lidocaine 1% (10 ml) Inj IV ONE (22:16)
[2017-06-03 22:24] LABS: PROTHROMBIN TIME 11.1 SECONDS (9.7-12.2)
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
--- NOTE | 2017-06-03 23:40 | PCM.PROC ---
- Incision & Drainage Of Abscess Anesthesia: Lidocaine 2% Prep Used: Betadine Procedure: Incised W/Scalpel Blade#: (11), Drained Pus, Probed To Break Up Loculations, Packed W/Gauze, Cultures Obtained And Sent To Lab
--- NOTE | 2017-06-03 23:45 | PCM.SURG1 ---
Surgeon's Initial Post Op Note - Surgeon's Notes Surgeon: Madelyn Medina, PGY2 Barrel Cap Setter: Nakul Bautista PGY2 Type of Anesthesia: Local (10cc's of 2% lidocaine without epinephrine) Pre-Operative Diagnosis: subcutaneous abscess of the dorsum of the left hand Operative Findings: purulent material, small subcutaneous cavity 1cm in diameter , no complex loculations Post-Operative Diagnosis: same Operation Performed: incision and drainage of subcutaneous abscess of the dorsum of the left hand Specimen/Specimens Removed: wound culture Estimated Blood Loss: EBL {In ML}: 5 Blood Products Given: N/A Drains Used: No Drains (packed with 1/2" iodoform gauze packing) Post-Op Condition: Fair Date of Surgery/Procedure: 06/03/17 Time of Surgery/Procedure: 22:30 Addendum Addendum: 06/03/17 23:47 Written consent was obtained. Patient was idenitified by her wrist band, laterality and procedure was confirmed. Patient was prepped and draped in a sterile fashion, 10cc's of 2% lidocaine without epi was administered locally around the abscess. small amount of purulent fluid was aspirated with an 18g needle. cruciate incision was created over area of aspiration with an #11 blade and more sero-purulent fluid was expressed. Culture was obtained and the subcutaneous tissue was explored with the culture swab, obliterating any loculations. Iodoform packing was placed in the wound, hemostasis was acheived with pressure and a sterile dressing was applied. patient tolerated the procedure well with no adverse side effects and was in stable condition after the procedure. Swabs of the wound were sent for culture.
[2017-06-04 08:04] LABS: HEPATITIS B SURFACE AG Negative (NEGATIVE)
[2017-06-04 08:13] LABS: HEPATITIS A IGM NEGATIVE (NEGATIVE); HEPATITIS B CORE AB NEGATIVE (NEGATIVE)
[2017-06-04 08:21] LABS: HEPATITIS C ANTIBODY NEGATIVE (NEGATIVE)
[2017-06-04] MEDS: Tmp-Smz 800 mg-160 mg DS Tab PO SCH ×2 (08:30→20:17)
--- NOTE | 2017-06-04 08:41 | RAD ---
PROCEDURE: Left Hand Radiographs. HISTORY: hand abscess, rule out foreign body COMPARISON: None. FINDINGS: BONES: Normal. No fracture. JOINTS: Normal. No osteoarthritic changes. SOFT TISSUES: Marked soft tissue swelling over the dorsal aspect of the metacarpals. OTHER FINDINGS: None. IMPRESSION: Dorsal soft tissue swelling. No evidence of radiopaque foreign body. No additional abnormality.
[2017-06-04] MEDS: Multiple Vitamins Tab PO SCH (10:07)
--- NOTE | 2017-06-04 14:22 | CP.PCM.PN ---
Subjective - Date & Time of Evaluation Date of Evaluation: 06/04/17 Time of Evaluation: 14:21 - Subjective Subjective: Hand surgery progress note for Dr. Farhan De Jesus, PGY-1 Pt S & E at bedside. Pt reports pain over left dorsum of hand when touched. Denies F & C. Objective - Vital Signs/Intake and Output Vital Signs (last 24 hours): Temp Pulse Resp BP Pulse Ox 98.2 F 112 H 18 129/88 100 06/04/17 14:16 06/04/17 14:16 06/04/17 14:16 06/04/17 14:16 06/04/17 14:16 - Medications Medications: Current Medications Chlordiazepoxide (Librium) 25 mg PO Q6H IGLESIA PRN Reason: Taper Stop: 06/08/17 11:59 Last Admin: 06/04/17 12:30 Dose: 25 mg Chlordiazepoxide (Librium) 25 mg PO Q4H PRN PRN Reason: Alcohol Withdrawal Last Admin: 06/04/17 10:07 Dose: 25 mg Clonidine HCl (Catapres) 0.1 mg PO Q4H PRN PRN Reason: Symptoms of alcohol withdrawl Last Admin: 06/04/17 06:22 Dose: 0.1 mg Folic Acid (Folic Acid) 1 mg PO DAILY [facility] Last Admin: 06/04/17 10:07 Dose: 1 mg Hydroxyzine HCl (Atarax) 25 mg PO Q4H PRN PRN Reason: Anxiety Last Admin: 06/03/17 23:30 Dose: 25 mg Ibuprofen (Motrin Tab) 600 mg PO Q6H PRN PRN Reason: Pain, moderate (4-7) Methadone HCl (Methadone) 15 mg PO Q24H IGLESIA PRN Reason: Taper Stop: 06/08/17 09:59 Last Admin: 06/04/17 10:51 Dose: 15 mg Multivitamins (Hexavitamin) 1 tab PO DAILY [facility] Last Admin: 06/04/17 10:07 Dose: 1 tab Nicotine (Nicoderm Cq) 1 patch TD DAILY [facility] Last Admin: 06/04/17 10:07 Dose: 1 patch Saccharomyces Boulardii (Florastor) 250 mg PO BID [facility] Thiamine HCl (Vitamin B1 Tab) 100 mg PO DAILY [facility] Last Admin: 06/04/17 10:07 Dose: 100 mg Trazodone HCl (Desyrel) 100 mg PO HS PRN PRN Reason: Insomnia Last Admin: 06/03/17 23:30 Dose: 100 mg Trimethoprim/Sulfamethoxazole (Bactrim Ds Tab) 1 tab PO Q12H IGLESIA PRN Reason: Protocol Last Admin: 06/04/17 08:30 Dose: 1 tab - Labs Labs: 06/03/17 00:30 06/03/17 00:30 PT 11.1 SECONDS (9.7-12.2) 06/03/17 22:14 INR 1.0 06/03/17 22:14 APTT 31 SECONDS (21-34) 06/03/17 22:14 - Constitutional Appears: Non-toxic, No Acute Distress - Head Exam Head Exam: ATRAUMATIC, NORMAL INSPECTION, NORMOCEPHALIC - Eye Exam Eye Exam: EOMI, Normal appearance - ENT Exam ENT Exam: Mucous Membranes Moist, Normal Exam - Neck Exam Neck Exam: Full ROM, Normal Inspection - Respiratory Exam Respiratory Exam: NORMAL BREATHING PATTERN - Cardiovascular Exam Cardiovascular Exam: REGULAR RHYTHM, +S1, +S2 - GI/Abdominal Exam GI & Abdominal Exam: absent: Distended - Extremities Exam Extremities Exam: Full ROM, Normal Inspection - Neurological Exam Neurological Exam: Alert, Awake, CN II-XII Intact, Oriented x3 - Psychiatric Exam Psychiatric exam: Normal Affect, Normal Mood - Skin Skin Exam: Dry, Normal Color, Warm. absent: Intact Assessment and Plan - Assessment and Plan (Free Text) Assessment: 36F w/PMh sig for IVDU with Left hand abscess s/p I & D Plan: Pain control Abx Packing/dressing changed today Further mgmt as per psych Will DW attending Liza, PGY-1
--- NOTE | 2017-06-04 14:31 | PCM.PYCHPN ---
Psychiatric Progress Note - Psychiatric Progress Note Patient seen today, length of contact: 16 min Patient Chief Complaint: "I'm ok a little" Problems Identified/Issues Discussed: The pt is seen, chart reviewed, case discussed with staff. The pt is compliant with medications and reports no side-effects. Symptoms are improving but needs more time to stabilize. After care discussed, support and psychoeducation given. Patient was interested in attending program near her house following detox Patient seemed anxious Medication Change: Yes (Detox changes daily) Medical Record Reviewed: Yes Mental Status Examination - Cognitive Function Orientation: Person, Place, Situation, Time Memory: Intact Attention: WNL Concentration: WNL Association: WN Fund of Knowledge: WNL - Mood Mood: Depressed, Anxious - Affect Affect: Constricted - Speech Speech: Appropriate - Formal Thought Process Formal Thought Process: No Impairment - Suicidal Ideation Suicidal Ideation: No - Homicidal Ideation Homicidal Ideation: No Goal/Treatment Plan - Goal/Treatment Plan Need for Continued Stay: Discharge may exacerbated symptoms, Severe functional impairment Progress Toward Problem(s) and Goals/Treatment Plan: Taper with librium nd methadone Gabapentin for augmentation if needed As needed medications All risks, benefits and alternatives of the meds discussed, and the pt agreed and understood. Attend groups and activities Supportive therapy and psychoeducation CO for abstinence CBT for relapse prevention Encourage MAT Refer to rehab or IOP, and self-help groups Smoking cessation with CO Nicotine patch if needed 34 min
[2017-06-04] MEDS: Saccharomyces Boulardi 250 mg Cap PO SCH (17:14)
--- NOTE | 2017-06-04 19:48 | CP.PCM.PN ---
<Ventura Somres - Last Filed: 06/04/17 19:44> Subjective - Date & Time of Evaluation Date of Evaluation: 06/04/17 Time of Evaluation: 19:44 - Subjective Subjective: Patient seen and examined at bedside still complaining of some pain on the L. hand No fevers or chills No other complaints at this time Objective - Vital Signs/Intake and Output Vital Signs (last 24 hours): Temp Pulse Resp BP Pulse Ox 99.1 F 104 H 18 127/86 99 06/04/17 16:22 06/04/17 16:22 06/04/17 16:22 06/04/17 16:22 06/04/17 16:22 - Medications Medications: Current Medications Chlordiazepoxide (Librium) 25 mg PO Q6H [facility] PRN Reason: Taper Stop: 06/08/17 11:59 Last Admin: 06/04/17 17:14 Dose: 25 mg Chlordiazepoxide (Librium) 25 mg PO Q4H PRN PRN Reason: Alcohol Withdrawal Last Admin: 06/04/17 10:07 Dose: 25 mg Clonidine HCl (Catapres) 0.1 mg PO Q4H PRN PRN Reason: Symptoms of alcohol withdrawl Last Admin: 06/04/17 19:13 Dose: 0.1 mg Folic Acid (Folic Acid) 1 mg PO DAILY [facility] Last Admin: 06/04/17 10:07 Dose: 1 mg Hydroxyzine HCl (Atarax) 25 mg PO Q4H PRN PRN Reason: Anxiety Last Admin: 06/04/17 19:13 Dose: 25 mg Ibuprofen (Motrin Tab) 600 mg PO Q6H PRN PRN Reason: Pain, moderate (4-7) Methadone HCl (Methadone) 15 mg PO Q24H [facility] PRN Reason: Taper Stop: 06/08/17 09:59 Last Admin: 06/04/17 10:51 Dose: 15 mg Multivitamins (Hexavitamin) 1 tab PO DAILY [facility] Last Admin: 06/04/17 10:07 Dose: 1 tab Nicotine (Nicoderm Cq) 1 patch TD DAILY [facility] Last Admin: 06/04/17 10:07 Dose: 1 patch Saccharomyces Boulardii (Florastor) 250 mg PO BID [facility] Last Admin: 06/04/17 17:14 Dose: 250 mg Thiamine HCl (Vitamin B1 Tab) 100 mg PO DAILY [facility] Last Admin: 06/04/17 10:07 Dose: 100 mg Trazodone HCl (Desyrel) 100 mg PO HS PRN PRN Reason: Insomnia Last Admin: 06/03/17 23:30 Dose: 100 mg Trimethoprim/Sulfamethoxazole (Bactrim Ds Tab) 1 tab PO Q12H [facility] PRN Reason: Protocol Last Admin: 06/04/17 08:30 Dose: 1 tab - Labs Labs: 06/03/17 00:30 06/03/17 00:30 PT 11.1 SECONDS (9.7-12.2) 06/03/17 22:14 INR 1.0 06/03/17 22:14 APTT 31 SECONDS (21-34) 06/03/17 22:14 - Constitutional Appears: Well - Head Exam Head Exam: ATRAUMATIC, NORMAL INSPECTION, NORMOCEPHALIC - Eye Exam Eye Exam: EOMI, Normal appearance, PERRL Pupil Exam: NORMAL ACCOMODATION, PERRL - ENT Exam ENT Exam: Mucous Membranes Moist, Normal Exam - Neck Exam Neck Exam: Full ROM, Normal Inspection. absent: Lymphadenopathy - Respiratory Exam Respiratory Exam: Clear to Ausculation Bilateral, NORMAL BREATHING PATTERN - Cardiovascular Exam Cardiovascular Exam: REGULAR RHYTHM, +S1, +S2. absent: Murmur - GI/Abdominal Exam GI & Abdominal Exam: Soft, Normal Bowel Sounds. absent: Distended, Tenderness - Extremities Exam Extremities Exam: Full ROM, Normal Capillary Refill, Normal Inspection. absent : Joint Swelling, Pedal Edema Additional comments: Left hand s/p ID dressing C/D/I - Back Exam Back Exam: NORMAL INSPECTION - Neurological Exam Neurological Exam: Alert, Awake, CN II-XII Intact, Normal Gait, Oriented x3 - Psychiatric Exam Psychiatric exam: Normal Affect, Normal Mood - Skin Skin Exam: Dry, Intact, Normal Color, Warm Assessment and Plan - Assessment and Plan (Free Text) Assessment: LUES Abscess 2/2 to heroin IV abuse Surgery (Guardado) - I/D, packing changed today, will follow surgery PO Bactrim DS BID for total of 14d total F/U blood culture EtOH withdrawal -as per psychiatry recs Heroin Withdrawal -as per psychiatry recs <Aleksandr Olson - Last Filed: 06/04/17 20:05> Objective - Vital Signs/Intake and Output Vital Signs (last 24 hours): Temp Pulse Resp BP Pulse Ox 99.1 F 104 H 18 127/86 99 06/04/17 16:22 06/04/17 16:22 06/04/17 16:22 06/04/17 16:22 06/04/17 16:22 - Medications Medications: Current Medications Chlordiazepoxide (Librium) 25 mg PO Q6H [facility] PRN Reason: Taper Stop: 06/08/17 11:59 Last Admin: 06/04/17 17:14 Dose: 25 mg Chlordiazepoxide (Librium) 25 mg PO Q4H PRN PRN Reason: Alcohol Withdrawal Last Admin: 06/04/17 10:07 Dose: 25 mg Clonidine HCl (Catapres) 0.1 mg PO Q4H PRN PRN Reason: Symptoms of alcohol withdrawl Last Admin: 06/04/17 19:13 Dose: 0.1 mg Folic Acid (Folic Acid) 1 mg PO DAILY [facility] Last Admin: 06/04/17 10:07 Dose: 1 mg Hydroxyzine HCl (Atarax) 25 mg PO Q4H PRN PRN Reason: Anxiety Last Admin: 06/04/17 19:13 Dose: 25 mg Ibuprofen (Motrin Tab) 600 mg PO Q6H PRN PRN Reason: Pain, moderate (4-7) Methadone HCl (Methadone) 15 mg PO Q24H [facility] PRN Reason: Taper Stop: 06/08/17 09:59 Last Admin: 06/04/17 10:51 Dose: 15 mg Multivitamins (Hexavitamin) 1 tab PO DAILY [facility] Last Admin: 06/04/17 10:07 Dose: 1 tab Nicotine (Nicoderm Cq) 1 patch TD DAILY [facility] Last Admin: 06/04/17 10:07 Dose: 1 patch Saccharomyces Boulardii (Florastor) 250 mg PO BID [facility] Last Admin: 06/04/17 17:14 Dose: 250 mg Thiamine HCl (Vitamin B1 Tab) 100 mg PO DAILY [facility] Last Admin: 06/04/17 10:07 Dose: 100 mg Trazodone HCl (Desyrel) 100 mg PO HS PRN PRN Reason: Insomnia Last Admin: 06/03/17 23:30 Dose: 100 mg Trimethoprim/Sulfamethoxazole (Bactrim Ds Tab) 1 tab PO Q12H [facility] PRN Reason: Protocol Last Admin: 06/04/17 08:30 Dose: 1 tab - Labs Labs: 06/03/17 00:30 06/03/17 00:30 PT 11.1 SECONDS (9.7-12.2) 06/03/17 22:14 INR 1.0 06/03/17 22:14 APTT 31 SECONDS (21-34) 06/03/17 22:14 Attending/Attestation - Attestation I have personally seen and examined this patient.: Yes I have fully participated in the care of the patient.: Yes I have reviewed all pertinent clinical information, including history, physical exam and plan: Yes Notes (Text): 06/04/17 20:04 If blood culture show up positive will need IV antibiotics and transfer to [facility] floor and 2D Echocardiogram considering patient history of IV drug abuse. Aleksandr Olson D.O.
--- NOTE | 2017-06-05 07:26 | CP.PCM.PN ---
<Ventura Somers - Last Filed: 06/05/17 10:17> Subjective - Date & Time of Evaluation Date of Evaluation: 06/05/17 Time of Evaluation: 07:25 - Subjective Subjective: Patient seen and examined at bedside Pain resolved Full ROM in the hand No fevers or chills No other complaints at this time Objective - Vital Signs/Intake and Output Vital Signs (last 24 hours): Temp Pulse Resp BP Pulse Ox 98.3 F 103 H 16 113/81 98 06/05/17 06:21 06/05/17 06:21 06/05/17 06:21 06/05/17 06:21 06/05/17 06:21 - Medications Medications: Current Medications Chlordiazepoxide (Librium) 25 mg PO Q6H [facility] PRN Reason: Taper Stop: 06/08/17 11:59 Last Admin: 06/05/17 05:22 Dose: 25 mg Chlordiazepoxide (Librium) 25 mg PO Q4H PRN PRN Reason: Alcohol Withdrawal Last Admin: 06/04/17 22:54 Dose: 25 mg Clonidine HCl (Catapres) 0.1 mg PO Q4H PRN PRN Reason: Symptoms of alcohol withdrawl Last Admin: 06/04/17 22:54 Dose: 0.1 mg Folic Acid (Folic Acid) 1 mg PO DAILY [facility] Last Admin: 06/04/17 10:07 Dose: 1 mg Hydroxyzine HCl (Atarax) 25 mg PO Q4H PRN PRN Reason: Anxiety Last Admin: 06/05/17 05:33 Dose: 25 mg Ibuprofen (Motrin Tab) 600 mg PO Q6H PRN PRN Reason: Pain, moderate (4-7) Methadone HCl (Methadone) 15 mg PO Q24H [facility] PRN Reason: Taper Stop: 06/08/17 09:59 Last Admin: 06/04/17 10:51 Dose: 15 mg Multivitamins (Hexavitamin) 1 tab PO DAILY [facility] Last Admin: 06/04/17 10:07 Dose: 1 tab Nicotine (Nicoderm Cq) 1 patch TD DAILY [facility] Last Admin: 06/04/17 10:07 Dose: 1 patch Saccharomyces Boulardii (Florastor) 250 mg PO BID [facility] Last Admin: 06/04/17 17:14 Dose: 250 mg Thiamine HCl (Vitamin B1 Tab) 100 mg PO DAILY [facility] Last Admin: 06/04/17 10:07 Dose: 100 mg Trazodone HCl (Desyrel) 100 mg PO HS PRN PRN Reason: Insomnia Last Admin: 06/04/17 22:54 Dose: 100 mg Trimethoprim/Sulfamethoxazole (Bactrim Ds Tab) 1 tab PO Q12H [facility] PRN Reason: Protocol Last Admin: 06/04/17 20:17 Dose: 1 tab - Labs Labs: 06/03/17 00:30 06/03/17 00:30 PT 11.1 SECONDS (9.7-12.2) 06/03/17 22:14 INR 1.0 06/03/17 22:14 APTT 31 SECONDS (21-34) 06/03/17 22:14 - Constitutional Appears: Well - Head Exam Head Exam: ATRAUMATIC, NORMAL INSPECTION, NORMOCEPHALIC - Eye Exam Eye Exam: EOMI, Normal appearance, PERRL Pupil Exam: NORMAL ACCOMODATION, PERRL - ENT Exam ENT Exam: Mucous Membranes Moist, Normal Exam - Neck Exam Neck Exam: Full ROM, Normal Inspection. absent: Lymphadenopathy - Respiratory Exam Respiratory Exam: Clear to Ausculation Bilateral, NORMAL BREATHING PATTERN - Cardiovascular Exam Cardiovascular Exam: REGULAR RHYTHM, +S1, +S2. absent: Murmur - GI/Abdominal Exam GI & Abdominal Exam: Soft, Normal Bowel Sounds. absent: Tenderness - Extremities Exam Extremities Exam: Full ROM, Normal Capillary Refill, Normal Inspection. absent : Joint Swelling, Pedal Edema Additional comments: L hand abscess s/p I/D dressing c/d/i. full ROM decreased erythema, tenderness - Back Exam Back Exam: NORMAL INSPECTION - Neurological Exam Neurological Exam: Alert, Awake, CN II-XII Intact, Normal Gait, Oriented x3 - Psychiatric Exam Psychiatric exam: Normal Affect, Normal Mood - Skin Skin Exam: Dry, Intact, Normal Color, Warm Assessment and Plan - Assessment and Plan (Free Text) Assessment: LUES Abscess 2/2 to heroin IV abuse Surgery (Guardado) - s/p I/D PO Bactrim DS BID for total of 14d total F/U blood culture - negative x 24. If negative x 48 and afebrile will sign off EtOH withdrawal -as per psychiatry recs Heroin Withdrawal -as per psychiatry recs Spoke with patient regarding her hep, RPR and HIV as they were negative. Patient was very concerned about this but felt better after being informed they were negative <Aleksandr Olson - Last Filed: 06/05/17 18:46> Objective - Vital Signs/Intake and Output Vital Signs (last 24 hours): Temp Pulse Resp BP Pulse Ox 98.5 F 95 H 20 115/73 99 06/05/17 16:00 06/05/17 16:00 06/05/17 16:00 06/05/17 16:00 06/05/17 16:00 - Medications Medications: Current Medications Chlordiazepoxide (Librium) 25 mg PO Q8H [facility] PRN Reason: Taper Stop: 06/08/17 11:59 Last Admin: 06/05/17 12:25 Dose: 25 mg Chlordiazepoxide (Librium) 25 mg PO Q4H PRN PRN Reason: Alcohol Withdrawal Last Admin: 06/05/17 17:37 Dose: 25 mg Clonidine HCl (Catapres) 0.1 mg PO Q4H PRN PRN Reason: Symptoms of alcohol withdrawl Last Admin: 06/04/17 22:54 Dose: 0.1 mg Escitalopram Oxalate (Lexapro) 10 mg PO DAILY [facility] Last Admin: 06/05/17 13:03 Dose: 10 mg Folic Acid (Folic Acid) 1 mg PO DAILY [facility] Last Admin: 06/05/17 09:32 Dose: 1 mg Hydroxyzine HCl (Atarax) 25 mg PO Q4H PRN PRN Reason: Anxiety Last Admin: 06/05/17 17:37 Dose: 25 mg Ibuprofen (Motrin Tab) 600 mg PO Q6H PRN PRN Reason: Pain, moderate (4-7) Loperamide HCl (Imodium) 2 mg PO QID PRN PRN Reason: Diarrhea Last Admin: 06/05/17 08:27 Dose: 2 mg Methadone HCl (Methadone) 10 mg PO Q24H [facility] PRN Reason: Taper Stop: 06/08/17 09:59 Last Admin: 06/05/17 09:31 Dose: 10 mg Multivitamins (Hexavitamin) 1 tab PO DAILY [facility] Last Admin: 06/05/17 09:32 Dose: 1 tab Nicotine (Nicoderm Cq) 1 patch TD DAILY [facility] Last Admin: 06/05/17 09:31 Dose: 1 patch Saccharomyces Boulardii (Florastor) 250 mg PO BID [facility] Last Admin: 06/05/17 17:00 Dose: 250 mg Thiamine HCl (Vitamin B1 Tab) 100 mg PO DAILY [facility] Last Admin: 06/05/17 09:32 Dose: 100 mg Trazodone HCl (Desyrel) 100 mg PO HS PRN PRN Reason: Insomnia Last Admin: 06/04/17 22:54 Dose: 100 mg Trimethoprim/Sulfamethoxazole (Bactrim Ds Tab) 1 tab PO Q12H [facility] PRN Reason: Protocol Last Admin: 06/05/17 08:27 Dose: 1 tab - Labs Labs: 06/05/17 08:50 06/05/17 08:50 PT 11.1 SECONDS (9.7-12.2) 06/03/17 22:14 INR 1.0 06/03/17 22:14 APTT 31 SECONDS (21-34) 06/03/17 22:14 Attending/Attestation - Attestation I have personally seen and examined this patient.: Yes I have fully participated in the care of the patient.: Yes I have reviewed all pertinent clinical information, including history, physical exam and plan: Yes Notes (Text): 06/05/17 18:44 Patient was seen and examined shortly after resident. Exam, assessment and plan were gone over with the resident. Also on Exam: Left hand edema significantly improved Blood culture negative at 24 hours and vitals are stable. Wound culture from I&D shows Corynebacterium which will be susceptible to Bactrim which the patient is already on and will need to continue for a total of 14 days. If blood culture is negative at 48 hours then, medicine team will sign off. Aleksandr Olson D.O.
[2017-06-05] MEDS: Tmp-Smz 800 mg-160 mg DS Tab PO SCH ×2 (08:27→21:07)
[2017-06-05 09:05] LABS: BASO % 0.6 % (0.0-2.0); EOS # 0.2 K/uL (0.0-0.7); EOS % 2.5 % (0.0-4.0); HEMOGLOBIN 10.8 g/dL (11.0-16.0); LYMPH # 2.7 K/uL (1.0-4.3); LYMPH % 35.6 % (20.0-40.0); MEAN CELL VOLUME 74.4 fL (81.0-99.0); MEAN CORPUSCULAR HEMOGLOBIN 23.9 pg (27.0-31.0); MEAN CORPUSCULAR HGB CONC 32.2 g/dL (33.0-37.0); MEAN PLATELET VOLUME 7.5 fL (7.2-11.7); MONO # 0.5 K/uL (0.0-0.8); MONO % 7.3 % (0.0-10.0); RBC 4.5 Mil/uL (3.80-5.20); RED CELL DISTRIBUTION WIDTH 25.4 % (11.5-14.5); WHITE BLOOD COUNT 7.4 K/uL (4.8-10.8)
[2017-06-05 09:11] LABS: ALB/GLOB RATIO 1.1 (1.0-2.1); ALBUMIN 4.3 g/dL (3.5-5.0); ALT/SGPT 32 U/L (9-52); AST/SGOT 94 U/L (14-36); BLOOD UREA NITROGEN 17 mg/dL (7-17); CALCIUM 9.6 mg/dl (8.6-10.4); GFR AFRICAN-AMERICAN > 60; GFR NON-AFRICAN AMERICAN > 60
[2017-06-05] MEDS: Multiple Vitamins Tab PO SCH (09:32)
[2017-06-05] MEDS: Saccharomyces Boulardi 250 mg Cap PO SCH ×2 (09:32→17:00)
[2017-06-05 12:06] LABS: FERRITIN 80.9 ng/mL
--- NOTE | 2017-06-05 13:58 | PCM.PYCHPN ---
Psychiatric Progress Note - Psychiatric Progress Note Patient seen today, length of contact: 17 min Patient Chief Complaint: "I'm feeling better today" Problems Identified/Issues Discussed: The pt is seen, chart reviewed, case discussed with staff. Support given, CBT and TN used briefly Improving slowly and needs more time No SEs from medications, risks discussed. After care discussed Pt stated that she felt like she was having a panic attack last night Pt complained that she was still feeling anxious following her panic attack, also complained of diarrhea Medication Change: Yes (Detox changes daily) Medical Record Reviewed: Yes Mental Status Examination - Cognitive Function Orientation: Person, Place, Situation, Time Memory: Intact Attention: WNL Concentration: WNL Association: WNL Fund of Knowledge: WNL - Mood Mood: Depressed, Anxious - Affect Affect: Constricted - Speech Speech: Appropriate - Formal Thought Process Formal Thought Process: No Impairment - Suicidal Ideation Suicidal Ideation: No - Homicidal Ideation Homicidal Ideation: No Goal/Treatment Plan - Goal/Treatment Plan Need for Continued Stay: Discharge may exacerbated symptoms, Severe functional impairment Progress Toward Problem(s) and Goals/Treatment Plan: Taper with librium nd methadone Gabapentin for augmentation if needed As needed medications All risks, benefits and alternatives of the meds discussed, and the pt agreed and understood. Attend groups and activities Supportive therapy and psychoeducation TN for abstinence CBT for relapse prevention Encourage MAT Refer to rehab or IOP, and self-help groups Smoking cessation with TN Nicotine patch if needed
[2017-06-05 14:25] LABS: IRON 70 ug/dL (37-170)
[2017-06-05 14:39] LABS: % IRON SATURATION 15 (20-55); TOTAL IRON BINDING CAPACITY 476 ug/dL (250-450)
--- NOTE | 2017-06-05 15:14 | CP.PCM.PN ---
Subjective - Date & Time of Evaluation Date of Evaluation: 06/05/17 Time of Evaluation: 11:30 - Subjective Subjective: Hand Surgery- Dr. Guardado Patient s&e at bedside. No acute events overnight. Pain is significantly better then yesterday. Dressing changed at bedside. Packing removed. No erythema or active discharge noted. Full range of motion with finger and hand w/ minimal pain. Objective - Vital Signs/Intake and Output Vital Signs (last 24 hours): Temp Pulse Resp BP Pulse Ox 98.2 F 88 19 116/81 100 06/05/17 13:00 06/05/17 13:00 06/05/17 13:00 06/05/17 13:00 06/05/17 13:00 - Medications Medications: Current Medications Chlordiazepoxide (Librium) 25 mg PO Q8H [facility] PRN Reason: Taper Stop: 06/08/17 11:59 Last Admin: 06/05/17 12:25 Dose: 25 mg Chlordiazepoxide (Librium) 25 mg PO Q4H PRN PRN Reason: Alcohol Withdrawal Last Admin: 06/04/17 22:54 Dose: 25 mg Clonidine HCl (Catapres) 0.1 mg PO Q4H PRN PRN Reason: Symptoms of alcohol withdrawl Last Admin: 06/04/17 22:54 Dose: 0.1 mg Escitalopram Oxalate (Lexapro) 10 mg PO DAILY [facility] Last Admin: 06/05/17 13:03 Dose: 10 mg Folic Acid (Folic Acid) 1 mg PO DAILY [facility] Last Admin: 06/05/17 09:32 Dose: 1 mg Hydroxyzine HCl (Atarax) 25 mg PO Q4H PRN PRN Reason: Anxiety Last Admin: 06/05/17 13:54 Dose: 25 mg Ibuprofen (Motrin Tab) 600 mg PO Q6H PRN PRN Reason: Pain, moderate (4-7) Loperamide HCl (Imodium) 2 mg PO QID PRN PRN Reason: Diarrhea Last Admin: 06/05/17 08:27 Dose: 2 mg Methadone HCl (Methadone) 10 mg PO Q24H [facility] PRN Reason: Taper Stop: 06/08/17 09:59 Last Admin: 06/05/17 09:31 Dose: 10 mg Multivitamins (Hexavitamin) 1 tab PO DAILY [facility] Last Admin: 06/05/17 09:32 Dose: 1 tab Nicotine (Nicoderm Cq) 1 patch TD DAILY [facility] Last Admin: 06/05/17 09:31 Dose: 1 patch Saccharomyces Boulardii (Florastor) 250 mg PO BID [facility] Last Admin: 06/05/17 09:32 Dose: 250 mg Thiamine HCl (Vitamin B1 Tab) 100 mg PO DAILY [facility] Last Admin: 06/05/17 09:32 Dose: 100 mg Trazodone HCl (Desyrel) 100 mg PO HS PRN PRN Reason: Insomnia Last Admin: 06/04/17 22:54 Dose: 100 mg Trimethoprim/Sulfamethoxazole (Bactrim Ds Tab) 1 tab PO Q12H [facility] PRN Reason: Protocol Last Admin: 06/05/17 08:27 Dose: 1 tab - Labs Labs: 06/05/17 08:50 06/05/17 08:50 PT 11.1 SECONDS (9.7-12.2) 06/03/17 22:14 INR 1.0 06/03/17 22:14 APTT 31 SECONDS (21-34) 06/03/17 22:14 - Constitutional Appears: Non-toxic, No Acute Distress - Head Exam Head Exam: ATRAUMATIC - Eye Exam Eye Exam: EOMI Pupil Exam: PERRL - Respiratory Exam Respiratory Exam: NORMAL BREATHING PATTERN. absent: Accessory Muscle Use, Respiratory Distress - Cardiovascular Exam Cardiovascular Exam: +S1, +S2. absent: Bradycardia, Tachycardia - GI/Abdominal Exam GI & Abdominal Exam: Soft. absent: Rigid, Tenderness - Extremities Exam Extremities Exam: Full ROM, Tenderness Additional comments: Left hand no erythema or active discharge full range of motion with active extension of wrist and of middle finger. Palpable radial pulses - Neurological Exam Neurological Exam: Alert, Awake, Oriented x3 - Psychiatric Exam Psychiatric exam: Normal Affect - Skin Skin Exam: Normal Color. absent: Erythema Assessment and Plan - Assessment and Plan (Free Text) Assessment: 36F s/p I&D of left hand Plan: packing removed at bedside clean dry dressing placed Daily dressing changes keep wound clean No further acute surgical intervention at this time discussed w/ Dr. Guardado surgical attending PGY1
--- NOTE | 2017-06-06 07:52 | CP.PCM.PN ---
Addendum entered and electronically signed by Ventura Somers DO 06/06/17 13: 21: please continue floraster for additional 44 days to take 2 hours after breakfast and 2 hours before dinner Original Note: <Ventura Somers - Last Filed: 06/06/17 07:50> Subjective - Date & Time of Evaluation Date of Evaluation: 06/06/17 Time of Evaluation: 07:50 - Subjective Subjective: Patient seen and examined at bedside No complaints at this time states pain is improving around site and hand now has full range of motion. No fevers or chills, No diarrhea or vomiting. Objective - Vital Signs/Intake and Output Vital Signs (last 24 hours): Temp Pulse Resp BP Pulse Ox 98.6 F 100 H 18 135/88 99 06/06/17 03:36 06/06/17 03:36 06/06/17 03:36 06/06/17 03:36 06/06/17 03:36 - Medications Medications: Current Medications Chlordiazepoxide (Librium) 25 mg PO Q8H IGLESIA PRN Reason: Taper Stop: 06/08/17 11:59 Last Admin: 06/06/17 03:31 Dose: Not Given Chlordiazepoxide (Librium) 25 mg PO Q4H PRN PRN Reason: Alcohol Withdrawal Last Admin: 06/06/17 01:05 Dose: 25 mg Clonidine HCl (Catapres) 0.1 mg PO Q4H PRN PRN Reason: Symptoms of alcohol withdrawl Last Admin: 06/04/17 22:54 Dose: 0.1 mg Escitalopram Oxalate (Lexapro) 10 mg PO DAILY [facility] Last Admin: 06/05/17 13:03 Dose: 10 mg Folic Acid (Folic Acid) 1 mg PO DAILY [facility] Last Admin: 06/05/17 09:32 Dose: 1 mg Hydroxyzine HCl (Atarax) 25 mg PO Q4H PRN PRN Reason: Anxiety Last Admin: 06/05/17 21:00 Dose: 25 mg Ibuprofen (Motrin Tab) 600 mg PO Q6H PRN PRN Reason: Pain, moderate (4-7) Loperamide HCl (Imodium) 2 mg PO QID PRN PRN Reason: Diarrhea Last Admin: 06/05/17 08:27 Dose: 2 mg Methadone HCl (Methadone) 10 mg PO Q24H IGLESIA PRN Reason: Taper Stop: 06/08/17 09:59 Last Admin: 06/05/17 09:31 Dose: 10 mg Multivitamins (Hexavitamin) 1 tab PO DAILY [facility] Last Admin: 06/05/17 09:32 Dose: 1 tab Nicotine (Nicoderm Cq) 1 patch TD DAILY [facility] Last Admin: 06/05/17 09:31 Dose: 1 patch Saccharomyces Boulardii (Florastor) 250 mg PO BID [facility] Last Admin: 06/05/17 17:00 Dose: 250 mg Thiamine HCl (Vitamin B1 Tab) 100 mg PO DAILY [facility] Last Admin: 06/05/17 09:32 Dose: 100 mg Trazodone HCl (Desyrel) 100 mg PO HS PRN PRN Reason: Insomnia Last Admin: 06/05/17 21:00 Dose: 100 mg Trimethoprim/Sulfamethoxazole (Bactrim Ds Tab) 1 tab PO Q12H IGLESIA PRN Reason: Protocol Last Admin: 06/05/17 21:07 Dose: 1 tab - Labs Labs: 06/05/17 08:50 06/05/17 08:50 PT 11.1 SECONDS (9.7-12.2) 06/03/17 22:14 INR 1.0 06/03/17 22:14 APTT 31 SECONDS (21-34) 06/03/17 22:14 - Additional Findings Additional findings: - Constitutional Appears: Non-toxic, No Acute Distress - Head Exam Head Exam: ATRAUMATIC - Eye Exam Eye Exam: EOMI Pupil Exam: PERRL - Respiratory Exam Respiratory Exam: NORMAL BREATHING PATTERN. absent: Accessory Muscle Use, Respiratory Distress - Cardiovascular Exam Cardiovascular Exam: +S1, +S2. absent: Bradycardia, Tachycardia - GI/Abdominal Exam GI & Abdominal Exam: Soft. absent: Rigid, Tenderness - Extremities Exam Extremities Exam: Full ROM, Tenderness Additional comments: Left hand no erythema or active discharge full range of motion with active extension of wrist and of middle finger. Palpable radial pulses - Neurological Exam Neurological Exam: Alert, Awake, Oriented x3 - Psychiatric Exam Psychiatric exam: Normal Affect - Skin Skin Exam: Normal Color. absent: Erythema Assessment and Plan (1) Abscess Assessment & Plan: S/p I/d By Dr. Trevino Blood cultures negative for 48 hours Patient continues to be afebrile Continue Bactrim DS BID for total 14 days (end date 05/17/17) Please reconsult if necessary Status: Resolved <WesleyAleksandr Jaffe - Last Filed: 06/06/17 18:41> Objective - Vital Signs/Intake and Output Vital Signs (last 24 hours): Temp Pulse Resp BP Pulse Ox 98.7 F 90 18 126/81 99 06/06/17 16:45 06/06/17 16:45 06/06/17 16:45 06/06/17 16:45 06/06/17 16:45 - Medications Medications: Current Medications Chlordiazepoxide (Librium) 25 mg PO Q12H IGLESIA PRN Reason: Taper Stop: 06/08/17 11:59 Last Admin: 06/06/17 13:01 Dose: 25 mg Chlordiazepoxide (Librium) 25 mg PO Q4H PRN PRN Reason: Alcohol Withdrawal Last Admin: 06/06/17 01:05 Dose: 25 mg Clonidine HCl (Catapres) 0.1 mg PO Q4H PRN PRN Reason: Symptoms of alcohol withdrawl Last Admin: 06/04/17 22:54 Dose: 0.1 mg Escitalopram Oxalate (Lexapro) 10 mg PO DAILY [facility] Last Admin: 06/06/17 09:24 Dose: 10 mg Folic Acid (Folic Acid) 1 mg PO DAILY [facility] Last Admin: 06/06/17 09:23 Dose: 1 mg Gabapentin (Neurontin) 300 mg PO TID [facility] Last Admin: 06/06/17 17:00 Dose: 300 mg Hydroxyzine HCl (Atarax) 25 mg PO Q4H PRN PRN Reason: Anxiety Last Admin: 06/06/17 09:24 Dose: 25 mg Ibuprofen (Motrin Tab) 600 mg PO Q6H PRN PRN Reason: Pain, moderate (4-7) Loperamide HCl (Imodium) 2 mg PO QID PRN PRN Reason: Diarrhea Last Admin: 06/05/17 08:27 Dose: 2 mg Methadone HCl (Methadone) 5 mg PO Q24H [facility] PRN Reason: Taper Stop: 06/08/17 09:59 Last Admin: 06/06/17 09:24 Dose: 5 mg Multivitamins (Hexavitamin) 1 tab PO DAILY [facility] Last Admin: 06/06/17 09:24 Dose: 1 tab Nicotine (Nicoderm Cq) 1 patch TD DAILY [facility] Last Admin: 06/06/17 09:23 Dose: 1 patch Saccharomyces Boulardii (Florastor) 250 mg PO BID [facility] Last Admin: 06/06/17 17:01 Dose: 250 mg Thiamine HCl (Vitamin B1 Tab) 100 mg PO DAILY [facility] Last Admin: 06/06/17 09:23 Dose: 100 mg Trazodone HCl (Desyrel) 100 mg PO HS PRN PRN Reason: Insomnia Last Admin: 06/05/17 21:00 Dose: 100 mg Trimethoprim/Sulfamethoxazole (Bactrim Ds Tab) 1 tab PO Q12H IGLESIA PRN Reason: Protocol Last Admin: 06/06/17 09:23 Dose: 1 tab - Labs Labs: 06/05/17 08:50 06/05/17 08:50 PT 11.1 SECONDS (9.7-12.2) 06/03/17 22:14 INR 1.0 06/03/17 22:14 APTT 31 SECONDS (21-34) 06/03/17 22:14 Attending/Attestation - Attestation I have personally seen and examined this patient.: Yes I have fully participated in the care of the patient.: Yes I have reviewed all pertinent clinical information, including history, physical exam and plan: Yes Notes (Text): 06/06/17 18:40 Patient was seen and examined at 8:30 AM Exam, assessment and plan were gone over with the resident Aleksandr Olson D.O.
--- NOTE | 2017-06-06 08:42 | PCM.PYCHPN ---
Psychiatric Progress Note - Psychiatric Progress Note Patient seen today, length of contact: 18 min Patient Chief Complaint: "I'm doing a little bit better today" Problems Identified/Issues Discussed: The pt is seen, chart reviewed, case discussed with staff. The pt is compliant with medications and reports no side-effects. Symptoms are improving but needs more time to stabilize. After care discussed, support and psychoeducation given. The pt complained of continuing anxiety, and asked for shorter-acting anxiety medications Overall, she thinks she is doing better than when she first arrived Medication Change: Yes (Detox changes daily) Medical Record Reviewed: Yes Mental Status Examination - Cognitive Function Orientation: Person, Place, Situation, Time Memory: Intact Attention: WNL Concentration: WNL Association: WNL Fund of Knowledge: WNL - Mood Mood: Depressed, Anxious - Affect Affect: Constricted - Speech Speech: Appropriate - Formal Thought Process Formal Thought Process: No Impairment - Suicidal Ideation Suicidal Ideation: No - Homicidal Ideation Homicidal Ideation: No Goal/Treatment Plan - Goal/Treatment Plan Need for Continued Stay: Discharge may exacerbated symptoms, Severe functional impairment Progress Toward Problem(s) and Goals/Treatment Plan: Taper with librium nd methadone Gabapentin for augmentation if needed As needed medications All risks, benefits and alternatives of the meds discussed, and the pt agreed and understood. Attend groups and activities Supportive therapy and psychoeducation [place] for abstinence CBT for relapse prevention Encourage MAT Refer to rehab or IOP, and self-help groups Smoking cessation with [place] Nicotine patch if needed
[2017-06-06] MEDS: Tmp-Smz 800 mg-160 mg DS Tab PO SCH ×2 (09:23→21:21)
[2017-06-06] MEDS: Multiple Vitamins Tab PO SCH (09:24)
[2017-06-06] MEDS: Saccharomyces Boulardi 250 mg Cap PO SCH ×2 (10:05→17:01)
[2017-06-07] MEDS: Tmp-Smz 800 mg-160 mg DS Tab PO SCH ×2 (08:10→21:47)
[2017-06-07] MEDS: Saccharomyces Boulardi 250 mg Cap PO SCH ×2 (09:35→17:04)
[2017-06-07] MEDS: Multiple Vitamins Tab PO SCH (09:35)
--- NOTE | 2017-06-07 13:52 | PCM.PYCHPN ---
Psychiatric Progress Note - Psychiatric Progress Note Patient seen today, length of contact: 16 min Patient Chief Complaint: "I'm hanging in there" Problems Identified/Issues Discussed: The pt is seen, chart reviewed, case discussed with staff. Support given, CBT and PR used briefly No new symptoms reported, improving slowly and needs more time No SEs from medications, risks discussed. After care discussed - wants to go to [place] but on wait list. Will go to [facility] Medication Change: Yes (Detox changes daily) Medical Record Reviewed: Yes Mental Status Examination - Cognitive Function Orientation: Person, Place, Situation, Time Memory: Intact Attention: WNL Concentration: WNL Association: [facility] Fund of Knowledge: WN - Mood Mood: Depressed, Anxious - Affect Affect: Constricted - Speech Speech: Appropriate - Formal Thought Process Formal Thought Process: No Impairment - Suicidal Ideation Suicidal Ideation: No - Homicidal Ideation Homicidal Ideation: No Goal/Treatment Plan - Goal/Treatment Plan Need for Continued Stay: Discharge may exacerbated symptoms, Severe functional impairment Progress Toward Problem(s) and Goals/Treatment Plan: Taper with librium and methadone Continue Asim for depression/anxiety Gabapentin for augmentation if needed As needed medications All risks, benefits and alternatives of the meds discussed, and the pt agreed and understood. Attend groups and activities Supportive therapy and psychoeducation [place] for abstinence CBT for relapse prevention Encourage MAT Refer to rehab or IOP, and self-help groups Smoking cessation with PR Nicotine patch if needed
[2017-06-07 19:00] VITALS: RESP 18; O2SAT 100
[2017-06-08 06:15] VITALS: PULSE 98
[2017-06-08] MEDS: Tmp-Smz 800 mg-160 mg DS Tab PO SCH (08:42)
--- NOTE | 2017-06-08 08:55 | PCM.PYCHDC ---
Mental Status Examination - Mental Status Examination Orientation: Person, Place, Situation, Time Memory: Intact Mood: Depressed (less), Anxious Affect: Constricted Speech: Appropriate Attention: Poor Concentration: Poor Association: WNL Fund of Knowledge: WNL Formal Thought Process: No Impairment Suicidal Ideation: No Current Homicidal Ideation?: No Discharge Summary - Discharge Note Reason for Hospitalization: Opioid and alcohol detox Consultations:: List each consultation separately and include: 1. Reason for request. 2. Findings. 3. Follow-up Consultations: Seen for her hand injury/lesion, help appreciated Summary of Hospital Course include:: 1. Description of specific treatment plan utilized for patients during their course of treatmen. 2. Summarize the time- course for resolution of acute symptoms and/or regressed behaviors. 3. Describe issues identified and worked on during hospitalization. 4. Describe medication utilized. 5. Describe medical problems identified and treated. 6. Reassessment of suicide risk Summary of Hospital Course: The pt was admitted and started on treatment with psychotherapy, support, psychoeducation and medications. [facility] and CBT used. The pt attended groups and activities, as well as milieu therapy. All the risks and benefits of medications are discussed and the patient understood and agreed. The pt improved with the treatments provided. She had anxiety attacks, tearfullness and depression. Lexapro started After care discussed with the patient. She will go to [facility] in [place] but waitlisted at [place]. - Diagnosis (1) Alcohol dependence Status: Acute (2) Opiate dependence Status: Acute - Final Diagnosis (DSM 5) Condition upon Discharge: STABLE Disposition: HOME/ ROUTINE Follow-up Treatment Plan: Continue below medications after discharge. Follow after care plan as discussed. Use relapse prevention skills Return to ER or call 911 if suicidal, homicidal or symptoms relapse. Stay away from stress, alcohol and drugs. See primary doctor regularly and get labs. Prescriptions/Medication Reconciliation: Escitalopram [Lexapro] 10 mg PO DAILY #30 tab Gabapentin [Neurontin] 300 mg PO TID #90 cap Saccharomyces Boulardi [Florastor] 250 mg PO BID #44 cap Sulfamethoxazole/Trimethoprim [Bactrim DS Tab] 1 tab PO Q12H 11 Days tab traZODone [Desyrel] 100 mg PO HS PRN #30 tab PRN Reason: Insomnia
[2017-06-08] MEDS: Saccharomyces Boulardi 250 mg Cap PO SCH (09:31)
[2017-06-08] MEDS: Multiple Vitamins Tab PO SCH (09:31)
[2017-06-08 09:52] VITALS: BP 125/82; TEMP 98.1
== END 2017-06-08 10:00 | disposition home or self-care (01) | DRG 745 ==
LOC: C.ER 23:53 → C.7D 06-03 05:39
PROVIDERS: ADMIT Psychiatry & Neurology Psychiatry; ATTEND Psychiatry & Neurology Psychiatry
PROC: HZ2ZZZZ Detoxification Services for Substance Abuse Treatment (ICD-10-PCS; principal; 2017-06-03)
PROC: HZ59ZZZ Individual Psychotherapy for Substance Abuse Treatment, Supportive (ICD-10-PCS; 2017-06-03)
PROC: GZ3ZZZZ Medication Management (ICD-10-PCS; 2017-06-03)
PROC: HZ46ZZZ Group Counseling for Substance Abuse Treatment, Psychoeducation (ICD-10-PCS; 2017-06-03)
PROC: 0J9K3ZZ Drainage of Left Hand Subcutaneous Tissue and Fascia, Percutaneous Approach (ICD-10-PCS; 2017-06-03)
DX: F11.23 Opioid dependence with withdrawal (principal); F10.230 Alcohol dependence with withdrawal, uncomplicated; L02.512 Cutaneous abscess of left hand; F17.210 Nicotine dependence, cigarettes, uncomplicated; F41.0 Panic disorder [episodic paroxysmal anxiety]; F32.9 Major depressive disorder, single episode, unspecified; J45.909 Unspecified asthma, uncomplicated; Y90.8 Blood alcohol level of 240 mg/100 ml or more

== ENCOUNTER 2017-09-26 15:07 | Inpatient (IN) | payer MEDICAID ==
[2017-09-26 15:07] VITALS: BMI 24.2
[2017-09-26 16:05] LABS: BASO # 0.1 K/uL (0.0-0.2); BASO % 0.9 % (0.0-2.0); EOS # 0.1 K/uL (0.0-0.7); EOS % 0.9 % (0.0-4.0); HEMOGLOBIN 11.3 g/dL (11.0-16.0); LYMPH # 3.2 K/uL (1.0-4.3); LYMPH % 30.5 % (20.0-40.0); MEAN CELL VOLUME 71.5 fL (81.0-99.0); MEAN CORPUSCULAR HEMOGLOBIN 22.8 pg (27.0-31.0); MEAN CORPUSCULAR HGB CONC 31.8 g/dL (33.0-37.0); MONO # 0.9 K/uL (0.0-0.8); MONO % 8.9 % (0.0-10.0); NEUT # 6.2 K/uL (1.8-7.0); NEUT % 58.8 % (50.0-75.0); NRBC % 0.1 % (0.0-2.0); RBC 4.96 Mil/uL (3.80-5.20); RED CELL DISTRIBUTION WIDTH 19.2 % (11.5-14.5); WHITE BLOOD COUNT 10.6 K/uL (4.8-10.8)
[2017-09-26 16:10] LABS: SQUAMOUS EPITHIAL 36 /hpf (0-5); URINE BACTERIA RARE (<OCC); URINE BILIRUBIN 1+ (NEGATIVE); URINE BLOOD 2+ (NEGATIVE); URINE CLARITY Hazy (Clear); URINE COLOR Amber (YELLOW); URINE GLUCOSE (UA) NORMAL (Normal); URINE HYALINE CAST >20 /lpf (0-2); URINE LEUKOCYTE ESTERASE NEG Leu/uL (Negative); URINE PROTEIN 2+ mg/dL (NEGATIVE)
[2017-09-26 16:33] LABS: ALB/GLOB RATIO 1.1 (1.0-2.1); ALBUMIN 4.9 g/dL (3.5-5.0); ALT/SGPT 125 U/L (9-52); AST/SGOT 507 U/L (14-36); BLOOD UREA NITROGEN 9 mg/dL (7-17); CALCIUM 9.1 mg/dl (8.6-10.4); GFR NON-AFRICAN AMERICAN > 60
[2017-09-26 16:42] LABS: PHENCYCLIDINE, UR NEGATIVE (NEGATIVE)
[2017-09-26 16:44] LABS: BARBITURATES, UR POSITIVE (NEGATIVE); BENZODIAZEPINES, UR POSITIVE (NEGATIVE); OPIATES, UR POSITIVE (NEGATIVE)
--- NOTE | 2017-09-26 16:50 | C.PDOC ---
History Of Present Illness 37 y/o female presents to ED requesting ETOH and Heroin detox. Patient reports she has history of Withdrawal seizures and states last use was this morning. Patient denies SI/HI, hallucinations or any other physical complaints at this time. Time Seen by Provider: 09/26/17 15:43 Chief Complaint (Nursing): Substance Abuse History Per: Patient History/Exam Limitations: no limitations Onset/Duration Of Symptoms: Days Current Symptoms Are (Timing): Still Present Suicide/Self Injury Attempted (Context): None Modifying Factor(s): Alcohol Past Medical History Reviewed: Historical Data, Nursing Documentation, Vital Signs Vital Signs: Last Vital Signs Temp 98.1 F 09/26/17 15:24 Pulse 114 H 09/26/17 15:24 Resp 18 09/26/17 15:24 BP 164/99 H 09/26/17 15:24 Pulse Ox 97 09/26/17 18:14 - Medical History PMH: Anxiety, Asthma, Depression, Seizures (12/2016) Surgical History: No Surg Hx - [facility] Procedures DETOXIFICATION SERVICES FOR SUBSTANCE ABUSE TREATMENT (06/03/17) DRAINAGE OF L HAND SUBCU/FASCIA, PERC APPROACH (06/03/17) GROUP STEWARD DISHWASHER FOR SUBSTANCE ABUSE TREATMENT, PSYCHOEDUCATION (06/03/17) GROUP STEWARD DISHWASHER FOR SUBSTANCE ABUSE, COGNITIVE BEHAVIORAL (08/18/16) INDIV PSYCHOTHERAPY FOR SUBSTANCE ABUSE TREATMENT, SUPPORT (06/03/17) INDIV PSYCHOTHERAPY FOR SUBSTANCE ABUSE, COGNITIV BEHAVIORAL (08/18/16) INDIV PSYCHOTHERAPY FOR SUBSTANCE ABUSE, PSYCHOEDUCATION (08/18/16) MEDICATION MANAGEMENT (06/03/17) Family History: States: No Known Family Hx - Social History Hx Alcohol Use: Yes Hx Substance Use: Yes - Immunization History Hx Tetanus Toxoid Vaccination: No Hx Influenza Vaccination: No Hx Pneumococcal Vaccination: No Review Of Systems Constitutional: Negative for: Fever, Chills Cardiovascular: Negative for: Chest Pain Respiratory: Negative for: Shortness of Breath Gastrointestinal: Negative for: Nausea, Vomiting Skin: Negative for: Rash Psych: Positive for: Other (substance abuse). Negative for: Suicidal ideation Physical Exam - Physical Exam Appears: Non-toxic, Other (Tearful ) Skin: Warm, Dry, No Rash Head: Atraumatic, Normacephalic Eye(s): bilateral: Normal Inspection Oral Mucosa: Moist Cardiovascular: Rhythm Regular Respiratory: Normal Breath Sounds, No Rales, No Rhonchi, No Wheezing Gastrointestinal/Abdominal: Soft, No Tenderness, No Guarding, No Rebound Neurological/Psych: Oriented x3, Normal Speech, Normal Cognition ED Course And Treatment - Laboratory Results Result Diagrams: 09/26/17 15:57 09/26/17 15:57 Lab Interpretation: No Acute Changes O2 Sat by Pulse Oximetry: 97 (RA) Pulse Ox Interpretation: Normal Progress Note: Case discussed and patient evaluated by crisis. Patient will be re-evaluated after 3 am due to ETOH levels. On re-evaluation in no distress Reassessment Condition: Unchanged Disposition - Disposition Disposition: HOSPITALIZED Disposition Time: 19:00 Condition: STABLE Forms: [employer] (Spanish) - POA Present On Arrival: None - Clinical Impression Clinical Impression: Drug abuse, Alcohol dependence - PA / FLAT FOLDER / Resident Statement MD/DO has reviewed & agrees with the documentation as recorded. - Scribe Statement The provider has reviewed the documentation as recorded by the Scribe Rajendra Zheng All medical record entries made by the Scribe were at my direction and personally dictated by me. I have reviewed the chart and agree that the record accurately reflects my personal performance of the history, physical exam, medical decision making, and the department course for this patient. I have also personally directed, reviewed, and agree with the discharge instructions and disposition. Physician Patient Turnover Patient Signed Over To: Giovana Carrington Handoff Comments: pending clearance from ETOH
--- NOTE | 2017-09-27 04:04 | PCM.BM ---
<Marek Lyle - Last Filed: 09/27/17 04:03> Treatment Plan Problems - Problems identified on initial assessmt Opiates Abuse Date Initiated: 09/27/17 (t) Time Initiated: 01:15 Assessment reference: NA Status: Active Treatment assets and liabiliti Patient Assests: adapts well, cooperative, educated, ADL independent, negotiates basic needs, strong sri Patient Liabilities: substance abuse (Opiates, alcohol. ) - Milieu Protocol Maintain good personal hygiene: daily Encourage regular showers, daily Remind patient to perform daily oral care, every shift Assist patient to perform ADL's Conduct patient checks and document Observation sheet: Q15 minutes Maintain personal safety: every shift Educate patient to report safety concerns to staff, every shift Monitor environment for contraband/sharps Medication safety: Monitor for expected outcome, potential side effects: every shift, Assess barriers to learning: every shift, Assess readiness for medication education: every shift <Meme Chao - Last Filed: 09/28/17 14:19> - Diagnosis (1) Alcohol dependence Status: Acute Interventions: 09/27/17 14:18 * Assess 7x/week regarding severity of withdrawal * Educate regarding risks, benefits, side effects and alternatives of medications * Use Motivational Interviewing for abstinence * Use CBT for relapse prevention * Medication management for withdrawal symptoms * Encourage medication assisted treatment * (2) Opiate dependence Status: Acute Interventions: 09/27/17 14:19 * Assess 7x/week regarding severity of withdrawal * Educate regarding risks, benefits, side effects and alternatives of medications * Use Motivational Interviewing for abstinence * Use CBT for relapse prevention * Medication management for withdrawal symptoms * Encourage medication assisted treatment *
[2017-09-27] MEDS: Multiple Vitamins Tab PO SCH (09:00)
[2017-09-27 11:12] LABS: HEPATITIS B SURFACE AG Negative (NEGATIVE)
[2017-09-27 11:18] LABS: HEPATITIS A IGM NEGATIVE (NEGATIVE); HEPATITIS B CORE AB NEGATIVE (NEGATIVE)
[2017-09-27 11:29] LABS: HEPATITIS C ANTIBODY NEGATIVE (NEGATIVE)
--- NOTE | 2017-09-28 00:34 | PCM.PSYCH ---
Initial Psychiatric Evaluation - Initial Psychiatric Evaluation Type of Admission: Voluntary Legal Status: Capacity Chief Complaint (in patient's own words): "I relapsed" History of Present Illness and Precipitating Events: The pt is seen, chart reviewed and case discussed She is known from previous admissions She is a 37 y/o female, , living with her mother, brother and . Has two children but they are not with her. Unemployed x10 months. She uses 20 bags IV heroin, more than 1 lt liquor and crack cocaine. She smokes 1 ppd cig. She started all "many years ago" and had DTs and seizures (last one few months ago) She has significant wdw sxs Pt has been to detox before She has depression and "severe" anxiety - debilitating, not suicidal but had thoughts in the past, no psychosis Medical: denied but has severely elevated LFTs Family psych : denied Current Medications: Active Medications Generic Name Dose Route Start Last Admin Trade Name Freq PRN Reason Stop Dose Admin Clonidine HCl 0.1 mg 09/27/17 05:32 09/27/17 19:29 Catapres PO 0.1 mg Q6 PRN Administration withdrawal symptoms Dicyclomine HCl 10 mg 09/27/17 01:58 09/27/17 02:35 Bentyl PO 10 mg Q6H PRN Administration Abdominal cramps Escitalopram Oxalate 10 mg 09/27/17 10:00 09/27/17 09:00 Lexapro PO 10 mg DAILY I[facility] Administration Folic Acid 1 mg 09/27/17 10:00 09/27/17 09:00 Folic Acid PO 1 mg DAILY [facility] Administration Gabapentin 300 mg 09/27/17 10:00 09/27/17 18:17 Neurontin PO 300 mg TID I[facility] Administration Hydroxyzine HCl 25 mg 09/27/17 02:04 Atarax PO Q6H PRN Anxiety Lorazepam 1 mg 09/27/17 08:47 09/27/17 19:29 Ativan PO 1 mg Q4H PRN Administration Symptoms of alcohol withdrawl Lorazepam 2 mg 09/27/17 10:00 09/27/17 21:10 Ativan PO 10/02/17 09:59 2 mg Q6H IGLESIA Administration Taper Multivitamins 1 tab 09/27/17 10:00 09/27/17 09:00 Hexavitamin PO 1 tab DAILY [facility] Administration Nicotine 1 patch 09/27/17 13:45 08/23/18 13:36 Nicoderm Cq TD 1 patch DAILY [facility] Administration Thiamine HCl 100 mg 09/27/17 10:00 09/27/17 09:00 Vitamin B1 Tab PO 100 mg DAILY [facility] Administration Trazodone HCl 100 mg 09/27/17 08:48 09/27/17 21:10 Desyrel PO 100 mg HS PRN Administration Insomnia Past Psychiatric History - Past Psychiatric History Previous Treatment History: Intensive Outpatient Pertinent Medical Hx (Current Medical&Sleep Prob, Allergies): Allergies Allergy/AdvReac Type Severity Reaction Status Date / Time No Known Allergies Allergy Verified 08/18/16 02:37 Escitalopram [Lexapro] 10 mg PO DAILY #30 tab 06/08/17 Gabapentin [Neurontin] 300 mg PO TID #90 cap 06/08/17 traZODone [Desyrel] 100 mg PO HS PRN #30 tab 06/08/17 Review of Systems - Neurological Neurological: UNREMARKABLE - Psychiatric Psychiatric: Abnormal Sleep Pattern, Anhedonia, Anxiety, Difficulty Concentrating, Irritability, Mood Swings. absent: Homicidal Ideation, Paranoia , Suicidal Ideation Mental Status Examination - Personal Presentation Personal Presentation: Looks older than stated age - Affect Affect: Constricted - Motor Activity Motor Activity: Calm - Reliability in Providing Information Reliability in Providing Information: Good - Speech Speech: Organized - Mood Mood: Depressed, Anxious - Formal Thought Process Formal Thought Process: No Impairment - Cognitive Functions Orientation: Person, Place, Situation, Time Sensorium: Alert Attention/Concentration: Easily distracted Estimate of Intelligence: Average Judgement: Intact, as evidence by: Insight regarding need for hospitalization Memory: Recent intact, as evidence by: Ability to recall events of the day, Remote intact, as evidenced by: Abilit to recall sig. life events - Risk Risk: Seizure, Withdrawal, Diminished functioning - Strength & Assets Inventory Strength & Assets Inventory: Cooperative - Limitations Limitations: Other DSM 5 DX - DSM 5 DSM 5 Diagnosis: Opioid withdrawal Opioid use d/o - severe Cocaine use d/o - severe Alcohol use d/o - severe Tobacco use d/o - severe Depressive d/o - unspecified NAOMI Panic d/o? - Recommended/Plan of Treatment Treatment Recommendations and Plan of Treatment: Ativan and methadone detox As needed medications Gabapentin for augmentation and anxiety Lexapro for depression All risks, benefits and alternatives of medications, including no medications, discussed and the patient understood and agreed. Attend groups and activities Supportive therapy and psychoeducation [place] for abstinence CBT for relapse prevention Encourage MAT Refer to rehab or IOP Attend self-help groups as well [place] for smoking cessation and patch if needed 34 min Projected ELOS: 4-5 days - Smoking Cessation Smoking Cessation Initiated: Yes
[2017-09-28] MEDS: Multiple Vitamins Tab PO SCH (10:31)
--- NOTE | 2017-09-28 14:20 | PCM.PYCHPN ---
Psychiatric Progress Note - Psychiatric Progress Note Patient seen today, length of contact: 16 min Patient Chief Complaint: "I am not doing well yet" Problems Identified/Issues Discussed: The pt is seen, chart reviewed, case discussed with staff. The pt is compliant with medications and reports no side-effects. Symptoms are improving but needs more time to stabilize. Pt attends groups and activities. Support given, psycho-education provided. After care discussed. Medication Change: Yes (detox changes daily) Medical Record Reviewed: Yes Mental Status Examination - Cognitive Function Orientation: Person, Place, Situation, Time Memory: Intact Attention: Poor Concentration: Poor Association: WNL Fund of Knowledge: WNL - Mood Mood: Depressed, Anxious - Affect Affect: Constricted - Speech Speech: Appropriate - Formal Thought Process Formal Thought Process: No Impairment - Suicidal Ideation Suicidal Ideation: No - Homicidal Ideation Homicidal Ideation: No Goal/Treatment Plan - Goal/Treatment Plan Need for Continued Stay: Discharge may exacerbated symptoms, Severe functional impairment Progress Toward Problem(s) and Goals/Treatment Plan: Ativan and methadone detox As needed medications Gabapentin for augmentation and anxiety Lexapro for depression All risks, benefits and alternatives of medications, including no medications, discussed and the patient understood and agreed. Attend groups and activities Supportive therapy and psychoeducation MT for abstinence CBT for relapse prevention Encourage MAT Refer to rehab or IOP Attend self-help groups as well MT for smoking cessation and patch if needed
[2017-09-29 05:38] VITALS: RESP 20; TEMP 98.7
[2017-09-29] MEDS: Multiple Vitamins Tab PO SCH (09:14)
[2017-09-29 10:02] VITALS: BP 126/87; PULSE 114; O2SAT 99
--- NOTE | 2017-09-29 10:12 | PCM.PYCHDC ---
Mental Status Examination - Mental Status Examination Orientation: Person Discharge Summary - Discharge Note Consultations:: List each consultation separately and include: 1. Reason for request. 2. Findings. 3. Follow-up Summary of Hospital Course include:: 1. Description of specific treatment plan utilized for patients during their course of treatmen. 2. Summarize the time- course for resolution of acute symptoms and/or regressed behaviors. 3. Describe issues identified and worked on during hospitalization. 4. Describe medication utilized. 5. Describe medical problems identified and treated. 6. Reassessment of suicide risk Summary of Hospital Course: The pt is seen, chart reviewed and case discussed She is known from previous admissions She is a 37 y/o female, , living with her mother, brother and . Has two children but they are not with her. Unemployed x10 months. She uses 20 bags IV heroin, more than 1 lt liquor and crack cocaine. She smokes 1 ppd cig. She started all "many years ago" and had DTs and seizures (last one few months ago) She has significant wdw sxs Pt has been to detox before She has depression and "severe" anxiety - debilitating, not suicidal but had thoughts in the past, no psychosis Medical: denied but has severely elevated LFTs Family psych : denied - Final Diagnosis (DSM 5) Condition upon Discharge: STABLE Disposition: AGAINST MEDICAL ADVICE Follow-up Treatment Plan: Ativan and methadone detox As needed medications Gabapentin for augmentation and anxiety Lexapro for depression All risks, benefits and alternatives of medications, including no medications, discussed and the patient understood and agreed. Attend groups and activities Supportive therapy and psychoeducation [place] for abstinence CBT for relapse prevention Encourage MAT Refer to rehab or IOP Attend self-help groups as well [place] for smoking cessation and patch if needed Prescriptions/Medication Reconciliation: cloNIDine [Catapres] 0.1 mg PO BID PRN #14 tab PRN Reason: Palpitations Escitalopram [Lexapro] 10 mg PO DAILY #30 tab Gabapentin [Neurontin] 300 mg PO TID #90 cap QUEtiapine [Seroquel] 100 mg PO HS #30 tab traZODone [Desyrel] 100 mg PO HS PRN #30 tab PRN Reason: Insomnia
== END 2017-09-29 10:30 | disposition left against medical advice (07) | DRG 743 ==
LOC: C.ER 15:07 → C.7D 09-27 00:46
PROC: HZ2ZZZZ Detoxification Services for Substance Abuse Treatment (ICD-10-PCS; principal; 2017-09-27)
PROC: HZ59ZZZ Individual Psychotherapy for Substance Abuse Treatment, Supportive (ICD-10-PCS; 2017-09-27)
PROC: HZ80ZZZ Medication Management for Substance Abuse Treatment, Nicotine Replacement (ICD-10-PCS; 2017-09-27)
PROC: HZ46ZZZ Group Counseling for Substance Abuse Treatment, Psychoeducation (ICD-10-PCS; 2017-09-27)
PROC: GZ3ZZZZ Medication Management (ICD-10-PCS; 2017-09-27)
DX: F11.23 Opioid dependence with withdrawal (principal); F10.20 Alcohol dependence, uncomplicated; F14.90 Cocaine use, unspecified, uncomplicated; F32.9 Major depressive disorder, single episode, unspecified; F41.1 Generalized anxiety disorder; F17.210 Nicotine dependence, cigarettes, uncomplicated; R79.89 Other specified abnormal findings of blood chemistry; J45.909 Unspecified asthma, uncomplicated